=== PATIENT | female | born 1960 | race Two or more races ===

== ENCOUNTER 2016-08-26 09:37 | Emergency (ER) | payer MEDICAID ==
[~2016-08-26] VITALS: Ht 165.1 cm; Wt 99.8 kg
[~2016-08-26 09:37] MED LIST: ALP15OS OP; DORZ2SOL15 OP; IBUP800T24 PO; PREG25CA PO
[2016-08-26 09:48] VITALS: BP 145/89
[2016-08-26 13:42] LABS: Basophils # (auto) 0 uL; Basophils % (auto) 0.4 % (0.0-2.0); DEFINITIVE VIEW TRANSMISSION; Eosinophils # (auto) 0.1 uL; Eosinophils % (auto) 2.6 % (0.0-7.0); Hematocrit 38.5 % (36.0-46.0); Hemoglobin 14.1 g/dL (12.2-16.2); Lymphocytes # (auto) 1.7 uL; Lymphocytes % (auto) 32.3 % (10.0-50.0); Mean Corpuscular Hemoglobin 33.9 pg (28.0-32.0); Mean Corpuscular Hgb Conc. 36.6 g/dL (32.0-36.0); Mean Corpuscular Volume 92.7 fL (80.0-100.0); Mean Platelet Volume 8.1 fL (7.4-10.4); Monocytes # (auto) 0.4 uL; Monocytes % (auto) 7.9 % (0.0-12.0); Neutrophils # (auto) 2.9 uL; Neutrophils % (auto) 56.8 % (37.0-80.0); Platelet Count (auto) 113 10^3/uL (140-450); Red Cell Distribution Width 13.4 % (11.6-16.0); White Blood Cell 5.1 10^3/uL (4.4-10.8)
[2016-08-26 14:09] LABS: Albumin 3.9 g/dL (3.4-5.0); Calcium 8.4 mg/dL (8.5-10.1); Potassium 3.8 mmol/L (3.5-5.1)
[2016-08-26 14:11] LABS: Bilirubin, Total 0.8 mg/dL (0.2-1.0); Total Protein 7.9 g/dL (6.4-8.2)
== END 2016-08-26 14:36 | disposition home or self-care (01) ==
LOC: EDUNIT# 09:37 → ER 09:53
DX: T18.9XXA Foreign body of alimentary tract, part unspecified, initial encounter (principal); S39.011A Strain of muscle, fascia and tendon of abdomen, initial encounter; R51 Headache; I12.9 Hypertensive chronic kidney disease with stage 1 through stage 4 chronic kidney disease, or unspecified chronic kidney disease; N18.9 Chronic kidney disease, unspecified; F03.90 Unspecified dementia, unspecified severity, without behavioral disturbance, psychotic disturbance, mood disturbance, and anxiety; Z79.899 Other long term (current) drug therapy; W04.XXXA Fall while being carried or supported by other persons, initial encounter; Y93.89 Activity, other specified; Y99.8 Other external cause status; Y92.89 Other specified places as the place of occurrence of the external cause; Z90.49 Acquired absence of other specified parts of digestive tract
CPT/HCPCS: 36415; 70450; 74176; 80053; 85025

== ENCOUNTER 2017-01-05 19:48 | Emergency (ER) | payer MEDICAID ==
[~2017-01-05] VITALS: Ht 152.4 cm; Wt 81.6 kg
[2017-01-05 19:50] VITALS: BP 107/78
[2017-01-05] MEDS ORDERED: SODIUM CHLORIDE 0.9% 1,000 ML IVB ONE (21:22)
[2017-01-05 21:59] LABS: Albumin 4.3 g/dL (3.4-5.0); BUN/Creatinine Ratio 13.8; Calcium 8.9 mg/dL (8.5-10.1); Potassium 3.4 mmol/L (3.5-5.1)
[2017-01-05 22:04] LABS: Bilirubin, Total 0.8 mg/dL (0.2-1.0); Total Protein 8.6 g/dL (6.4-8.2)
[2017-01-05 22:14] LABS: Basophils # (auto) 0.1 uL; Basophils % (auto) 0.9 % (0.0-2.0); CONDITION Y; Eosinophils # (auto) 0.1 uL; Eosinophils % (auto) 1.1 % (0.0-7.0); Hematocrit 44.7 % (36.0-46.0); Hemoglobin 15.6 g/dL (12.2-16.2); Lymphocytes # (auto) 3.1 uL; Lymphocytes % (auto) 47.6 % (10.0-50.0); Mean Corpuscular Hemoglobin 32.8 pg (28.0-32.0); Mean Corpuscular Volume 93.7 fL (80.0-100.0); Mean Platelet Volume 7.5 fL (7.4-10.4); Monocytes # (auto) 0.5 uL; Monocytes % (auto) 8.2 % (0.0-12.0); Neutrophils # (auto) 2.8 uL; Neutrophils % (auto) 42.2 % (37.0-80.0); Platelet Count (auto) 102 10^3/uL (140-450); Red Cell Distribution Width 13.6 % (11.6-16.0); White Blood Cell 6.6 10^3/uL (4.4-10.8)
[2017-01-06] MEDS ORDERED: THIAMINE HCL 100 MG/ML 2ML VIAL IM ONE (01:45)
== END 2017-01-06 02:58 | disposition home or self-care (01) ==
LOC: EDBD 19:48 → ER 19:52
DX: F10.129 Alcohol abuse with intoxication, unspecified (principal); G92 Toxic encephalopathy; I12.9 Hypertensive chronic kidney disease with stage 1 through stage 4 chronic kidney disease, or unspecified chronic kidney disease; N18.9 Chronic kidney disease, unspecified; Z90.49 Acquired absence of other specified parts of digestive tract; Z79.899 Other long term (current) drug therapy
CPT/HCPCS: 36415; 80053; 80320; 85025; 96360; 99284; J7030

== ENCOUNTER 2018-01-21 19:55 | Inpatient (IN) | payer MEDICAID ==
[~2018-01-21] VITALS: Ht 157.5 cm; Wt 81.9 kg
[~2018-01-21 19:55] MED LIST changes: -DORZ2SOL15 OP; +DORZ2SOL18 OP
[2018-01-21 20:46] LABS: Basophils # (auto) 0 uL; Basophils % (auto) 1.1 % (0.0-2.0); Eosinophils # (auto) 0.2 uL; Eosinophils % (auto) 4.3 % (0.0-7.0); Hematocrit 32.2 % (36.0-46.0); Hemoglobin 11.1 g/dL (12.2-16.2); Lymphocytes # (auto) 1.2 uL; Lymphocytes % (auto) 31.5 % (10.0-50.0); Mean Corpuscular Hemoglobin 35.4 pg (28.0-32.0); Mean Corpuscular Hgb Conc. 34.6 g/dL (32.0-36.0); Mean Corpuscular Volume 102.3 fL (80.0-100.0); Monocytes # (auto) 0.4 uL; Monocytes % (auto) 11.2 % (0.0-12.0); Neutrophils # (auto) 2.1 uL; Neutrophils % (auto) 51.9 % (37.0-80.0); Nucleated Red Blood Cells % 0.3 %; Red Blood Cells 3.14 10^6/uL (4.0-5.20); Red Cell Distribution Width 13.4 % (11.8-14.3)
[2018-01-21 20:49] LABS: Platelet Count (auto) 125 10^3/uL (140-450)
[2018-01-21 21:00] LABS: Prothrombin Time 10.7 sec (9.27-12.13)
[2018-01-21 21:07] LABS: Alanine Aminotransferase 30 U/L (13-56); Albumin 3.3 g/dL (3.4-5.0); Alkaline Phosphatase 73 U/L (45-117); Anion Gap 13 (5-15); Aspartate Aminotransferase 20 U/L (15-37); Bilirubin, Total 0.5 mg/dL (0.2-1.0); Blood Urea Nitrogen 16 mg/dL (7-18); Calcium 7.4 mg/dL (8.5-10.1); Carbon Dioxide 18 mmol/L (21-32); Chloride 104 mmol/L (98-107); GFR African American 48 mL/min; GFR Non-African American 39 mL/min; Glucose 98 mg/dL (74-106); Potassium 3.7 mmol/L (3.5-5.1); Sodium 135 mmol/L (136-145); Total Protein 6.7 g/dL (6.4-8.2)
[2018-01-21] MEDS ORDERED: SODIUM CHLORIDE 0.9% 1,000 ML IV ONE (21:30)
[2018-01-21 23:17] LABS: Urine Bacteria NONE SEEN /hpf (None Seen); Urine Blood Negative /uL (Negative); Urine Specific Gravity 1.004 (1.001-1.035); Urine WBC <1 /hpf (0 - 5)
[2018-01-21 23:29] LABS: Amphetamine Screen, Urine NEGATIVE (NEGATIVE); Barbiturate Scree,Urine NEGATIVE (NEGATIVE); Benzodiazephine Screen, Urine NEGATIVE (NEGATIVE); Cannabinoid Screen, Urine POSITIVE (NEGATIVE); Cocaine Screen, Urine NEGATIVE (NEGATIVE); Opiate Scree,Urine NEGATIVE (NEGATIVE); Phencyclidine Screen, Urine NEGATIVE (NEGATIVE)
[2018-01-22] MEDS ORDERED: SODIUM CHLORIDE 0.9% 1,000 ML IV SCH (00:15)
[2018-01-22] MEDS ORDERED: ACETAMINOPHEN 500 MG TAB PO PRN (00:15)
[2018-01-22] MEDS ORDERED: ONDANSETRON HCL 4 MG/2 ML VIAL IV PRN (00:15)
[2018-01-22] MEDS ORDERED: SODIUM CHLORIDE 0.9% 1,000 ML IV ONE (02:00)
[2018-01-22] MEDS ORDERED: LORazepam 0.5 MG TAB PO PRN (02:45)
[2018-01-22] MEDS: HYDROcodone-ACET 5/325MG TAB PO PRN ×2 (08:29→22:04)
[2018-01-22 09:20] VITALS: BP 162/100
[2018-01-22 09:21] LABS: BUN/Creatinine Ratio 13.5; Calcium 7.9 mg/dL (8.5-10.1); Potassium 4.2 mmol/L (3.5-5.1)
[2018-01-22] MEDS: PANTOPRAZOLE 40 MG TAB PO SCH (09:55)
[2018-01-22] MEDS: THIAMINE HCL 100 MG TAB PO SCH (09:55)
[2018-01-22] MEDS: FOLIC ACID 1 MG TAB PO SCH (09:56)
[2018-01-22 10:04] LABS: Basophils # (auto) 0 uL; Eosinophils # (auto) 0.1 uL; Lymphocytes % (auto) 30.9 % (10.0-50.0); Monocytes # (auto) 0.3 uL; Neutrophils # (auto) 1.5 uL; Platelet Count (auto) 92 10^3/uL (140-450)
[2018-01-22 10:06] LABS: Eosinophils % (auto) 3.8 % (0.0-7.0); Hematocrit 33.5 % (36.0-46.0); Hemoglobin 11.3 g/dL (12.2-16.2); Lymphocytes # (auto) 0.9 uL; Mean Corpuscular Hemoglobin 34.4 pg (28.0-32.0); Mean Corpuscular Hgb Conc. 33.8 g/dL (32.0-36.0); Mean Corpuscular Volume 101.7 fL (80.0-100.0); Monocytes % (auto) 11.2 % (0.0-12.0); Neutrophils % (auto) 53.1 % (37.0-80.0); Nucleated Red Blood Cells % 0.3 %; Red Blood Cells 3.29 10^6/uL (4.0-5.20); Red Cell Distribution Width 13.6 % (11.8-14.3); White Blood Cell 2.8 10^3/uL (4.4-10.8)
[2018-01-22 13:00] VITALS: BP 124/77
[2018-01-22 17:00] VITALS: BP 123/76
[2018-01-22] MEDS ORDERED: LORA-654 PO (22:03)
[2018-01-22] MEDS ORDERED: HYDR-531 PO (22:03)
[2018-01-22] MEDS ORDERED: FURO40TA PO (22:03)
[2018-01-22] MEDS: TEMAZEPAM 15 MG CAP PO PRN (22:04)
[2018-01-22 22:07] VITALS: BP 125/80
[2018-01-23 05:10] VITALS: BP_SYST 80
[2018-01-23 09:00] VITALS: BP 151/83
[2018-01-23] MEDS: PANTOPRAZOLE 40 MG TAB PO SCH (09:49)
[2018-01-23] MEDS: FOLIC ACID 1 MG TAB PO SCH (09:50)
[2018-01-23] MEDS: THIAMINE HCL 100 MG TAB PO SCH (09:50)
[2018-01-23] MEDS: METOPROLOL TARTRATE 25 MG TAB PO SCH ×2 (09:54→22:12)
[2018-01-23] MEDS: HYDROcodone-ACET 5/325MG TAB PO PRN ×2 (09:54→20:20)
[2018-01-23] MEDS: PROPRANOLOL HCL 20 MG TAB PO SCH ×2 (09:55→22:12)
[2018-01-23] MEDS: MECLIZINE HCL 25 MG TAB PO PRN (09:55)
[2018-01-23 13:00] VITALS: BP 127/79
[2018-01-23 22:00] VITALS: BP 136/79
[2018-01-23] MEDS: TEMAZEPAM 15 MG CAP PO PRN (22:13)
[2018-01-24 05:00] VITALS: BP 178/85
[2018-01-24] MEDS: LISINOPRIL 10 MG TAB PO SCH ×3 (06:19→22:21)
[2018-01-24 07:32] LABS: Basophils # (auto) 0 uL; Basophils % (auto) 0.6 % (0.0-2.0); Hemoglobin 11.8 g/dL (12.2-16.2); Lymphocytes # (auto) 0.9 uL; Monocytes # (auto) 0.4 uL; Platelet Count (auto) 91 10^3/uL (140-450)
[2018-01-24 07:38] LABS: Eosinophils # (auto) 0.2 uL; Eosinophils % (auto) 4.6 % (0.0-7.0); Hematocrit 34.2 % (36.0-46.0); Lymphocytes % (auto) 24.5 % (10.0-50.0); Mean Corpuscular Hemoglobin 35.9 pg (28.0-32.0); Mean Corpuscular Hgb Conc. 34.4 g/dL (32.0-36.0); Mean Corpuscular Volume 104.4 fL (80.0-100.0); Monocytes % (auto) 12.3 % (0.0-12.0); Red Blood Cells 3.28 10^6/uL (4.0-5.20); Red Cell Distribution Width 13.3 % (11.8-14.3); White Blood Cell 3.5 10^3/uL (4.4-10.8)
[2018-01-24 07:49] LABS: Albumin 3.3 g/dL (3.4-5.0); BUN/Creatinine Ratio 21.1; Bilirubin, Total 0.8 mg/dL (0.2-1.0); Calcium 8.5 mg/dL (8.5-10.1); Potassium 4.1 mmol/L (3.5-5.1); Total Protein 6.8 g/dL (6.4-8.2)
[2018-01-24 09:30] VITALS: BP 147/86
[2018-01-24] MEDS: THIAMINE HCL 100 MG TAB PO SCH (10:09)
[2018-01-24] MEDS: METOPROLOL TARTRATE 25 MG TAB PO SCH ×2 (10:10→22:21)
[2018-01-24] MEDS: FOLIC ACID 1 MG TAB PO SCH (10:10)
[2018-01-24] MEDS: PANTOPRAZOLE 40 MG TAB PO SCH (10:11)
[2018-01-24] MEDS: PROPRANOLOL HCL 20 MG TAB PO SCH ×2 (10:11→22:20)
[2018-01-24] MEDS ORDERED: CITALOPRAM HYDROBR 20 MG TAB PO ONE (11:00)
[2018-01-24 12:55] LABS: Folate (Folic Acid) > 24.00 ng/mL (5.38-24)
[2018-01-24 13:34] VITALS: BP 142/80
[2018-01-24 17:47] VITALS: BP 133/80
[2018-01-24 21:52] VITALS: BP 134/89
[2018-01-24] MEDS: HYDROcodone-ACET 5/325MG TAB PO PRN (22:22)
[2018-01-25 05:10] VITALS: BP 139/75
[2018-01-25 07:23] LABS: Basophils # (auto) 0 uL; Eosinophils # (auto) 0.2 uL; Hemoglobin 12.2 g/dL (12.2-16.2); Neutrophils # (auto) 2.2 uL; Red Cell Distribution Width 13.2 % (11.8-14.3)
[2018-01-25 07:26] LABS: Basophils % (auto) 0.8 % (0.0-2.0); Eosinophils % (auto) 4.5 % (0.0-7.0); Hematocrit 33.9 % (36.0-46.0); Lymphocytes # (auto) 0.8 uL; Lymphocytes % (auto) 21.8 % (10.0-50.0); Mean Corpuscular Hgb Conc. 36.1 g/dL (32.0-36.0); Mean Corpuscular Volume 102.6 fL (80.0-100.0); Monocytes # (auto) 0.5 uL; Monocytes % (auto) 12.6 % (0.0-12.0); Neutrophils % (auto) 60.3 % (37.0-80.0); Nucleated Red Blood Cells % 0.3 %; Platelet Count (auto) 91 10^3/uL (140-450); Red Blood Cells 3.31 10^6/uL (4.0-5.20); White Blood Cell 3.6 10^3/uL (4.4-10.8)
[2018-01-25 07:28] VITALS: BP 131/74
[2018-01-25 07:43] LABS: Albumin 3.3 g/dL (3.4-5.0); Calcium 8.6 mg/dL (8.5-10.1); Potassium 4.1 mmol/L (3.5-5.1)
[2018-01-25 07:46] LABS: BUN/Creatinine Ratio 18.6
[2018-01-25 07:49] LABS: Bilirubin, Total 0.9 mg/dL (0.2-1.0); Total Protein 6.8 g/dL (6.4-8.2)
[2018-01-25 08:00] VITALS: BP 131/74
[2018-01-25] MEDS: PROPRANOLOL HCL 20 MG TAB PO SCH ×2 (10:13→22:00)
[2018-01-25] MEDS: THIAMINE HCL 100 MG TAB PO SCH (10:13)
[2018-01-25] MEDS: PANTOPRAZOLE 40 MG TAB PO SCH (10:14)
[2018-01-25] MEDS: LISINOPRIL 10 MG TAB PO SCH ×2 (10:14→22:00)
[2018-01-25] MEDS: CITALOPRAM HYDROBR 20 MG TAB PO SCH (10:14)
[2018-01-25] MEDS: FOLIC ACID 1 MG TAB PO SCH (10:15)
[2018-01-25] MEDS: METOPROLOL TARTRATE 25 MG TAB PO SCH ×2 (10:15→22:00)
[2018-01-25] MEDS: HYDROcodone-ACET 5/325MG TAB PO PRN (11:03)
[2018-01-25 16:33] VITALS: BP 99/63
[2018-01-25 22:00] VITALS: BP 109/65
[2018-01-26 05:00] VITALS: BP 130/72
[2018-01-26 09:00] VITALS: BP 137/90
[2018-01-26] MEDS: THIAMINE HCL 100 MG TAB PO SCH (09:28)
[2018-01-26] MEDS: PROPRANOLOL HCL 20 MG TAB PO SCH ×2 (09:29→22:00)
[2018-01-26] MEDS: LISINOPRIL 10 MG TAB PO SCH ×2 (09:29→22:00)
[2018-01-26] MEDS: CITALOPRAM HYDROBR 20 MG TAB PO SCH (09:29)
[2018-01-26] MEDS: FOLIC ACID 1 MG TAB PO SCH (09:29)
[2018-01-26] MEDS: PANTOPRAZOLE 40 MG TAB PO SCH (09:29)
[2018-01-26] MEDS: METOPROLOL TARTRATE 25 MG TAB PO SCH ×2 (09:30→22:00)
[2018-01-26] MEDS ORDERED: FLUT110A INH (09:43)
[2018-01-26] MEDS ORDERED: LATA0.0015 EACHEYE (09:43)
[2018-01-26] MEDS ORDERED: FURO20TA PO (09:43)
[2018-01-26] MEDS ORDERED: LISI-275 PO (09:43)
[2018-01-26] MEDS ORDERED: DORZ2SOL18 EACHEYE (09:43)
[2018-01-26] MEDS ORDERED: BRIM0.159 OP (09:43)
[2018-01-26 13:00] VITALS: BP 116/74
[2018-01-26 17:34] VITALS: BP 125/86
[2018-01-26] MEDS: HYDROcodone-ACET 5/325MG TAB PO PRN (21:34)
[2018-01-26 21:56] VITALS: BP 100/61
[2018-01-26] MEDS: BRIMONIDINE 0.2% OPTH Soln 5ml EACHEYE SCH (22:00)
[2018-01-26] MEDS: DORZOLAM-TIMOLOL(2/0.5%) OPTH(EYE) SOLN 10ML EACHEYE SCH (22:00)
[2018-01-26] MEDS ORDERED: LATANOPROST 0.005 % OPTH(EYE) SOL 2.5ML EACHEYE SCH (22:00)
[2018-01-26] MEDS: TEMAZEPAM 15 MG CAP PO PRN (22:46)
[2018-01-27 05:00] VITALS: BP 132/66
[2018-01-27] MEDS: BRIMONIDINE 0.2% OPTH Soln 5ml EACHEYE SCH (06:10)
[2018-01-27 07:02] LABS: Basophils # (auto) 0 uL; Eosinophils # (auto) 0.2 uL; Eosinophils % (auto) 5.7 % (0.0-7.0); Hemoglobin 12.1 g/dL (12.2-16.2); Monocytes # (auto) 0.6 uL; Neutrophils # (auto) 1.4 uL
[2018-01-27 07:04] LABS: Basophils % (auto) 0.5 % (0.0-2.0); Hematocrit 32.7 % (36.0-46.0); Lymphocytes # (auto) 1.2 uL; Lymphocytes % (auto) 35.4 % (10.0-50.0); Mean Corpuscular Hemoglobin 38.6 pg (28.0-32.0); Mean Corpuscular Hgb Conc. 37.1 g/dL (32.0-36.0); Mean Corpuscular Volume 104.3 fL (80.0-100.0); Monocytes % (auto) 17.3 % (0.0-12.0); Neutrophils % (auto) 41.1 % (37.0-80.0); Platelet Count (auto) 87 10^3/uL (140-450); Red Blood Cells 3.14 10^6/uL (4.0-5.20); Red Cell Distribution Width 13.1 % (11.8-14.3); White Blood Cell 3.4 10^3/uL (4.4-10.8)
[2018-01-27 07:13] LABS: Albumin 3.3 g/dL (3.4-5.0); BUN/Creatinine Ratio 22.4; Calcium 8.6 mg/dL (8.5-10.1); Potassium 4.4 mmol/L (3.5-5.1)
[2018-01-27 07:16] LABS: Bilirubin, Total 0.5 mg/dL (0.2-1.0); Total Protein 6.8 g/dL (6.4-8.2)
[2018-01-27 08:19] VITALS: BP 131/76
[2018-01-27] MEDS: THIAMINE HCL 100 MG TAB PO SCH (09:13)
[2018-01-27] MEDS: PANTOPRAZOLE 40 MG TAB PO SCH (09:14)
[2018-01-27] MEDS: PROPRANOLOL HCL 20 MG TAB PO SCH (09:14)
[2018-01-27] MEDS: HYDROcodone-ACET 5/325MG TAB PO PRN (09:15)
[2018-01-27] MEDS: METOPROLOL TARTRATE 25 MG TAB PO SCH (09:15)
[2018-01-27] MEDS: LISINOPRIL 10 MG TAB PO SCH (09:15)
[2018-01-27] MEDS: DORZOLAM-TIMOLOL(2/0.5%) OPTH(EYE) SOLN 10ML EACHEYE SCH (09:17)
[2018-01-27] MEDS: CITALOPRAM HYDROBR 20 MG TAB PO SCH (09:21)
[2018-01-27] MEDS: MECLIZINE HCL 25 MG TAB PO PRN (09:21)
[2018-01-27] MEDS: FOLIC ACID 1 MG TAB PO SCH (10:00)
== END 2018-01-27 13:02 | disposition home or self-care (01) | DRG 469 ==
LOC: EDBD 19:55 → ER 19:55 → TELE 19:56 → TELE-WESTW 01-22 09:00
PROVIDERS: ADMIT Nurse Practitioner Family; ATTEND Internal Medicine
DX: N17.0 Acute kidney failure with tubular necrosis (principal); I67.4 Hypertensive encephalopathy; I13.0 Hypertensive heart and chronic kidney disease with heart failure and stage 1 through stage 4 chronic kidney disease, or unspecified chronic kidney disease; I95.9 Hypotension, unspecified; D69.6 Thrombocytopenia, unspecified; I50.9 Heart failure, unspecified; D64.9 Anemia, unspecified; D72.819 Decreased white blood cell count, unspecified; H40.9 Unspecified glaucoma; N18.9 Chronic kidney disease, unspecified; F12.90 Cannabis use, unspecified, uncomplicated; Z82.3 Family history of stroke; Z82.49 Family history of ischemic heart disease and other diseases of the circulatory system; Z83.3 Family history of diabetes mellitus; Z71.41 Alcohol abuse counseling and surveillance of alcoholic; Z71.51 Drug abuse counseling and surveillance of drug abuser; Z80.9 Family history of malignant neoplasm, unspecified; Z87.891 Personal history of nicotine dependence; F10.129 Alcohol abuse with intoxication, unspecified
CPT/HCPCS: 36415; 70450; 80048; 80053; 80307; 80320; 81001; 82746; 83880; 84443; 84484; 85025; 85610; 85730; 86592; 93005; 96360; 96361; 99291

== ENCOUNTER 2019-02-02 21:40 | Emergency (ER) | payer MEDICARE, MEDICAID ==
[~2019-02-02] VITALS: Ht 165.1 cm; Wt 79.8 kg
[~2019-02-02 21:40] MED LIST changes: -ALP15OS OP; +BRIM0.159 OP; +DORZ2SOL18 EACHEYE; -DORZ2SOL18 OP; +FLUT110A INH; +FURO1TAB33 PO; +HYDR-531 PO; -IBUP800T24 PO; +LATA0.0015 EACHEYE; +LISI-275 PO; +LORA0.5T12 PO; -PREG25CA PO
[2019-02-02 22:54] LABS: Basophils # (auto) 0.1 uL; Lymphocytes # (auto) 1.5 uL; Mean Corpuscular Hemoglobin 37.5 pg (28.0-32.0); Nucleated Red Blood Cells % 0.1 %
[2019-02-02 22:57] LABS: Basophils % (auto) 1.2 % (0.0-2.0); Eosinophils # (auto) 0.5 uL; Eosinophils % (auto) 10.4 % (0.0-7.0); Hemoglobin 11.7 g/dL (12.2-16.2); Lymphocytes % (auto) 30.7 % (10.0-50.0); Mean Corpuscular Hgb Conc. 35.5 g/dL (32.0-36.0); Mean Corpuscular Volume 105.5 fL (80.0-100.0); Monocytes # (auto) 0.5 uL; Monocytes % (auto) 9.3 % (0.0-12.0); Neutrophils # (auto) 2.3 uL; Neutrophils % (auto) 48.4 % (37.0-80.0); Platelet Count (auto) 155 10^3/uL (140-450); Red Blood Cells 3.13 10^6/uL (4.0-5.20); Red Cell Distribution Width 12.6 % (11.8-14.3); White Blood Cell 4.8 10^3/uL (4.4-10.8)
[2019-02-02 23:12] LABS: Albumin 3.8 g/dL (3.4-5.0); BUN/Creatinine Ratio 15.5; Calcium 8.9 mg/dL (8.5-10.1); Potassium 3.9 mmol/L (3.5-5.1)
[2019-02-02 23:15] LABS: Bilirubin, Total 0.4 mg/dL (0.2-1.0); Total Protein 7.8 g/dL (6.4-8.2)
[2019-02-02] MEDS ORDERED: TETANUS-DIPTH-ACEL PERTUSSIS 0.5ML SYRG IM ONE (23:30)
[2019-02-03 02:11] LABS: Amphetamine Screen, Urine NEGATIVE (NEGATIVE); Barbiturate Scree,Urine NEGATIVE (NEGATIVE); Benzodiazephine Screen, Urine NEGATIVE (NEGATIVE); Cocaine Screen, Urine NEGATIVE (NEGATIVE); Opiate Scree,Urine NEGATIVE (NEGATIVE); Phencyclidine Screen, Urine NEGATIVE (NEGATIVE)
[2019-02-03 02:15] LABS: Cannabinoid Screen, Urine POSITIVE (NEGATIVE)
[2019-02-03 03:57] VITALS: BP 101/63
== END 2019-02-03 06:18 | disposition home or self-care (01) ==
LOC: EDBD 21:40 → ER 21:40 → EDUNIT# 21:40 → EDSEX 21:40 → ER 02-03 06:18
DX: S01.01XA Laceration without foreign body of scalp, initial encounter (principal); F10.129 Alcohol abuse with intoxication, unspecified; I13.0 Hypertensive heart and chronic kidney disease with heart failure and stage 1 through stage 4 chronic kidney disease, or unspecified chronic kidney disease; N18.9 Chronic kidney disease, unspecified; I50.9 Heart failure, unspecified; Z90.89 Acquired absence of other organs; Z79.899 Other long term (current) drug therapy; W18.39XA Other fall on same level, initial encounter; Y93.89 Activity, other specified; Y92.89 Other specified places as the place of occurrence of the external cause; Y99.8 Other external cause status; Y90.8 Blood alcohol level of 240 mg/100 ml or more
CPT/HCPCS: 12002; 36415; 70450; 80053; 80307; 80320; 85025; 90471; 90715

== ENCOUNTER 2022-05-09 20:34 | Inpatient (IN) | payer MEDICARE, MEDICAID ==
[~2022-05-09] VITALS: Ht 165.1 cm; Wt 84.0 kg
[~2022-05-09 20:34] MED LIST changes: -LATA0.0015 EACHEYE; +LATA0.0019 EACHEYE; -LORA0.5T12 PO; +LORA0.5T20 PO
[2022-05-09 21:59] LABS: Basophils # (auto) 0 10 ^3/uL (0-0.2); Basophils % (auto) 0.4 % (0.0-2.0); Eosinophils # (auto) 0.2 10 ^3/uL (0-0.8); Lymphocytes # (auto) 1.1 10 ^3/uL (0.4-5.4); Mean Corpuscular Volume 99.8 fL (80.0-100.0); Monocytes # (auto) 0.8 10 ^3/uL (0-1.3); Neutrophils # (auto) 4.9 10 ^3/uL (1.6-8.6); White Blood Cell 7.1 10^3/uL (4.4-10.8)
[2022-05-09 22:01] LABS: Hematocrit 33.3 % (36.0-46.0); Hemoglobin 11.9 g/dL (12.2-16.2); Lymphocytes % (auto) 15.4 % (10.0-50.0); Mean Corpuscular Hemoglobin 35.6 pg (28.0-32.0); Mean Corpuscular Hgb Conc. 35.7 g/dL (32.0-36.0); Monocytes % (auto) 11.8 % (0.0-12.0); Neutrophils % (auto) 69.4 % (37.0-80.0); Red Blood Cells 3.34 10^6/uL (4.0-5.20); Red Cell Distribution Width 12.3 % (11.8-14.3)
[2022-05-09 22:10] LABS: INR 1.03 (0.9-1.15); Partial Thromboplastin Time 24.8 sec (24.6-33.4)
[2022-05-09 22:17] LABS: Albumin 3.5 g/dL (3.4-5.0); Bilirubin, Total 0.4 mg/dL (0.2-1.0); Calcium 8.3 mg/dL (8.5-10.1); Potassium 3.8 mmol/L (3.5-5.1); Total Protein 6.8 g/dL (6.4-8.2)
[2022-05-10 00:10] LABS: Amphetamine Screen, Urine NEGATIVE (NEGATIVE); Barbiturate Scree,Urine NEGATIVE (NEGATIVE); Benzodiazephine Screen, Urine NEGATIVE (NEGATIVE); Cannabinoid Screen, Urine POSITIVE (NEGATIVE); Cocaine Screen, Urine NEGATIVE (NEGATIVE); Opiate Scree,Urine NEGATIVE (NEGATIVE); Phencyclidine Screen, Urine NEGATIVE (NEGATIVE)
[2022-05-10 02:18] LABS: Urine Bacteria FEW /hpf (None Seen); Urine Blood Negative /uL (Negative); Urine Mucus FEW (None Seen); Urine Specific Gravity 1.017 (1.001-1.035); Urine WBC 22 /hpf (0 - 5)
[2022-05-10] MEDS ORDERED: SODIUM CHLORIDE 0.9% 500 ML IV ONE (03:15)
[2022-05-10] MEDS ORDERED: levoFLOXacin 500MG 100 ML IV ONE (03:30)
[2022-05-10] MEDS ORDERED: chlordiazePOXIDE HCL 25 MG CAP PO PRN (05:15)
[2022-05-10] MEDS ORDERED: ONDANSETRON HCL 4 MG/2 ML VIAL IV PRN (05:15)
[2022-05-10] MEDS ORDERED: TEMAZEPAM 15 MG CAP PO PRN (05:15)
[2022-05-10] MEDS: PANTOPRAZOLE 40 MG TAB PO SCH (09:50)
[2022-05-10] MEDS: ACETAMINOPHEN 325 MG TAB PO PRN ×2 (09:51→23:01)
[2022-05-10] MEDS: cefTRIAXone 1GM/50ML D5W 50 ML IV SCH (09:51)
[2022-05-10] MEDS: ENOXAPARIN SOD 30 MG/0.3 ML SYRINGE SC SCH (09:52)
[2022-05-10 17:24] LABS: Folate (Folic Acid) 14.56 ng/mL (5.38-24)
[2022-05-10 17:26] LABS: Free T4 (Free Thyroxine) 0.98 ng/dL (0.89-1.76)
[2022-05-10] MEDS: FOLIC ACID 1 MG, MULTIPLE VITAMIN 10 ML, MAGNESIUM SULF SDV 50% 8 MEQ, THIAMINE INJ 100... INJ SCH ×5 (18:26)
[2022-05-10] MEDS ORDERED: CYANOCOBALAMIN (B-12) 1000 MCG/1 ML VIAL IM ONE (21:45)
[2022-05-11] VITALS (7 sets, daily range): BP systolic 118–153; BP diastolic 69–86
[2022-05-11 06:19] LABS: BUN/Creatinine Ratio 23.3; Calcium 8.8 mg/dL (8.5-10.1); Potassium 4.1 mmol/L (3.5-5.1)
[2022-05-11] MEDS: ACETAMINOPHEN 325 MG TAB PO PRN (06:54)
[2022-05-11] MEDS: cefTRIAXone 1GM/50ML D5W 50 ML IV SCH (09:30)
[2022-05-11] MEDS: ENOXAPARIN SOD 30 MG/0.3 ML SYRINGE SC SCH (10:30)
[2022-05-11] MEDS: CYANOCOBALAMIN (B-12) 1000 MCG/1 ML VIAL IM SCH (10:30)
[2022-05-11] MEDS: PANTOPRAZOLE 40 MG TAB PO SCH (10:30)
[2022-05-11] MEDS: FOLIC ACID 1 MG, MULTIPLE VITAMIN 10 ML, MAGNESIUM SULF SDV 50% 8 MEQ, THIAMINE INJ 100... INJ SCH ×5 (11:05)
[2022-05-11] MEDS ORDERED: LISI-716 PO (17:58)
[2022-05-11] MEDS: [UNRECOGNIZED DRUG - OTHER] EACHEYE SCH (22:12)
[2022-05-11] MEDS: BRIMONIDINE TARTRATE OP SCH (22:12)
[2022-05-12] VITALS: BP 125/76
[2022-05-12] MEDS: ACETAMINOPHEN 325 MG TAB PO PRN (04:31)
[2022-05-12 05:00] VITALS: BP 149/80
[2022-05-12] MEDS: BRIMONIDINE TARTRATE OP SCH ×2 (05:02→14:30)
[2022-05-12 08:34] VITALS: BP 140/80
[2022-05-12] MEDS: ENOXAPARIN SOD 30 MG/0.3 ML SYRINGE SC SCH (08:35)
[2022-05-12] MEDS: cefTRIAXone 1GM/50ML D5W 50 ML IV SCH (08:35)
[2022-05-12] MEDS: PANTOPRAZOLE 40 MG TAB PO SCH (08:36)
[2022-05-12] MEDS: CYANOCOBALAMIN (B-12) 1000 MCG/1 ML VIAL IM SCH (08:40)
[2022-05-12] MEDS: [UNRECOGNIZED DRUG - OTHER] EACHEYE SCH (08:41)
[2022-05-12] MEDS: FOLIC ACID 1 MG, MULTIPLE VITAMIN 10 ML, MAGNESIUM SULF SDV 50% 8 MEQ, THIAMINE INJ 100... INJ SCH ×5 (12:17)
[2022-05-12 12:59] VITALS: BP 156/100
[2022-05-12] MEDS ORDERED: CEPH-511 PO (15:13)
[2022-05-12 15:33] VITALS: BP 131/78
[2022-05-12 15:49] VITALS: BP 139/81
[2022-05-12] MEDS ORDERED: cloNIDine HCL 0.1 MG TAB PO ONE (17:30)
[2022-05-12] MEDS ORDERED: hydrALAZINE HCL 20 MG/ML VL IV ONE (17:30)
[2022-05-12] MEDS ORDERED: LATANOPROST 0.005 % OPTH(EYE) SOL 2.5ML EACHEYE SCH (18:00)
== END 2022-05-12 18:59 | disposition home or self-care (01) | DRG 91 ==
LOC: EDBD 20:34 → ER 20:35 → OVERFLOW 05-10 05:12 → WEST WING 05-10 21:50
PROVIDERS: ADMIT Nurse Practitioner; ATTEND Internal Medicine
DX: G92.9 Unspecified toxic encephalopathy (principal); N17.0 Acute kidney failure with tubular necrosis; I13.0 Hypertensive heart and chronic kidney disease with heart failure and stage 1 through stage 4 chronic kidney disease, or unspecified chronic kidney disease; N30.00 Acute cystitis without hematuria; E86.0 Dehydration; S00.83XA Contusion of other part of head, initial encounter; N18.9 Chronic kidney disease, unspecified; I72.2 Aneurysm of renal artery; Z20.822 Contact with and (suspected) exposure to COVID-19; W18.39XA Other fall on same level, initial encounter; I50.9 Heart failure, unspecified; Z82.49 Family history of ischemic heart disease and other diseases of the circulatory system; Z82.3 Family history of stroke; Z83.3 Family history of diabetes mellitus; Y93.89 Activity, other specified; Y92.89 Other specified places as the place of occurrence of the external cause; Y99.8 Other external cause status; Z71.41 Alcohol abuse counseling and surveillance of alcoholic; F10.229 Alcohol dependence with intoxication, unspecified
CPT/HCPCS: 36415; 70450; 70486; 71045; 71250; 72125; 74176; 80048; 80053; 80307; 80320; 81001; 82607; 82746; 83735; 83880; 84439; 84443; 84484; 85025; 85610; 85730; 87040; 87426; 93005; 96365; 96367; 97163; G0378; J0696; J1956

== ENCOUNTER → 2022-11-29 | Outpatient (CLI) | payer OTHER ==
[~2022-11-29] MED LIST changes: +CEPH-511 PO; -LATA0.0019 EACHEYE; +LATA0.008 EACHEYE; -LORA0.5T20 PO
[2022-11-29 10:05] LABS: Basophils # (auto) 0 10 ^3/uL (0-0.2); Basophils % (auto) 0.4 % (0.0-2.0); Eosinophils # (auto) 0.1 10 ^3/uL (0-0.8); Hematocrit 35.1 % (36.0-46.0); Hemoglobin 11.9 g/dL (12.2-16.2); Lymphocytes # (auto) 1.1 10 ^3/uL (0.4-5.4); Lymphocytes % (auto) 36.4 % (10.0-50.0); Mean Corpuscular Hemoglobin 31.1 pg (28.0-32.0); Mean Corpuscular Volume 91.5 fL (80.0-100.0); Monocytes # (auto) 0.3 10 ^3/uL (0-1.3); Monocytes % (auto) 9.3 % (0.0-12.0); Neutrophils # (auto) 1.5 10 ^3/uL (1.6-8.6); Neutrophils % (auto) 50.9 % (37.0-80.0); Nucleated Red Blood Cells % 0.1 %; Red Blood Cells 3.83 10^6/uL (4.0-5.20); Red Cell Distribution Width 12.6 % (11.8-14.3); White Blood Cell 2.9 10^3/uL (4.4-10.8)
[2022-11-29 11:47] LABS: Albumin 3.7 g/dL (3.4-5.0); BUN/Creatinine Ratio 18.7 (10.0-20.0); Calcium 8.7 mg/dL (8.5-10.1); Potassium 4.4 mmol/L (3.5-5.1)
[2022-11-29 11:54] LABS: Bilirubin, Total 0.3 mg/dL (0.2-1.0); Total Protein 7.6 g/dL (6.4-8.2)
== END | disposition home or self-care (01) ==
LOC: LAB 09:48
PROVIDERS: ATTEND Student in an Organized Health Care Education/Training Program
DX: Z12.11 Encounter for screening for malignant neoplasm of colon (principal); Z46.9 Encounter for fitting and adjustment of unspecified device; M13.80 Other specified arthritis, unspecified site; I10 Essential (primary) hypertension; F10.10 Alcohol abuse, uncomplicated
CPT/HCPCS: 36415; 80053; 80061; 82274; 85025; 85652; 86431

== ENCOUNTER 2022-12-07 09:47 | Emergency (ER) | payer OTHER, MEDICAID ==
[~2022-12-07] VITALS: Ht 157.5 cm; Wt 81.0 kg
[2022-12-07 10:19] VITALS: BP 159/104
[2022-12-07] MEDS ORDERED: ACET-1080 PO (11:34)
[2022-12-07] MEDS ORDERED: ACETAMINOPHEN 500 MG TAB PO ONE (11:45)
== END 2022-12-07 11:46 | disposition home or self-care (01) ==
LOC: ER 09:47
DX: S90.32XA Contusion of left foot, initial encounter (principal); I13.0 Hypertensive heart and chronic kidney disease with heart failure and stage 1 through stage 4 chronic kidney disease, or unspecified chronic kidney disease; N18.9 Chronic kidney disease, unspecified; I50.89 Other heart failure; F10.90 Alcohol use, unspecified, uncomplicated; Z90.89 Acquired absence of other organs; Z79.899 Other long term (current) drug therapy; W04.XXXA Fall while being carried or supported by other persons, initial encounter; Y93.89 Activity, other specified; Y92.89 Other specified places as the place of occurrence of the external cause; Y99.8 Other external cause status
CPT/HCPCS: 73630

== ENCOUNTER 2023-04-18 06:54 | Day surgery (SDC) | payer OTHER, MEDICAID ==
[2023-04-16 11:53] LABS: Basophils # (auto) 0 10 ^3/uL (0-0.2); Basophils % (auto) 0.5 % (0.0-2.0); Eosinophils # (auto) 0.2 10 ^3/uL (0-0.8); Eosinophils % (auto) 3.3 % (0.0-7.0); Hematocrit 37.7 % (36.0-46.0); Hemoglobin 12.8 g/dL (12.2-16.2); Lymphocytes # (auto) 1.4 10 ^3/uL (0.4-5.4); Lymphocytes % (auto) 28.9 % (10.0-50.0); Mean Corpuscular Hemoglobin 31.7 pg (28.0-32.0); Mean Corpuscular Hgb Conc. 34.1 g/dL (32.0-36.0); Mean Corpuscular Volume 92.9 fL (80.0-100.0); Monocytes # (auto) 0.6 10 ^3/uL (0-1.3); Monocytes % (auto) 12.2 % (0.0-12.0); Neutrophils # (auto) 2.7 10 ^3/uL (1.6-8.6); Neutrophils % (auto) 55.1 % (37.0-80.0); Nucleated Red Blood Cells % 0.1 %; Red Blood Cells 4.06 10^6/uL (4.0-5.20); Red Cell Distribution Width 13.6 % (11.8-14.3); White Blood Cell 4.9 10^3/uL (4.4-10.8)
[2023-04-16 12:08] LABS: INR 1.02 (0.9-1.15); Partial Thromboplastin Time 24.5 SEC (24.5-34.5); Prothrombin Time 10.7 sec (9.3-11.8)
[2023-04-16 12:43] LABS: Alanine Aminotransferase 23 U/L (7-40); Albumin 4.6 g/dL (3.2-4.8); Alkaline Phosphatase 77 U/L (46-116); Anion Gap 7 (5-15); Aspartate Aminotransferase 10 U/L (13-40); BUN/Creatinine Ratio 20.7 (10.0-20.0); Bilirubin, Total 0.6 mg/dL (0.2-1.0); Blood Urea Nitrogen 19 mg/dL (9-23); Calcium 9.6 mg/dL (8.7-10.4); Carbon Dioxide 24 mmol/L (20-30); Chloride 111 mmol/L (98-107); Glucose 91 mg/dL (74-106); Potassium 4.6 mmol/L (3.5-5.1); Sodium 142 mmol/L (136-145); Total Protein 7.6 g/dL (5.7-8.2)
[~2023-04-18] VITALS: Ht 157.5 cm; Wt 81.2 kg
[~2023-04-18 06:54] MED LIST changes: +ACET-1080 PO; -CEPH-511 PO; -FURO1TAB33 PO; -HYDR-531 PO; -LISI-275 PO; +LISI10TA34 PO; +METO25TA36 PO
[2023-04-18 07:32] LABS: Urine Bacteria NONE SEEN /hpf (None Seen); Urine Blood Negative /uL (Negative); Urine Clarity Clear (Clear); Urine Color Yellow (Yellow); Urine Protein, UAD Negative (Negative); Urine Specific Gravity 1.021 (1.001-1.035); Urine Urobilinogen Normal (Negative); Urine WBC 4 /hpf (0 - 5); Urine pH 5.5 (5.0-8.0)
[2023-04-18] MEDS ORDERED: LIDOCAINE 2%HCL (LOCAL ANESTH.) INJ 10ml MDV ONE (08:13)
[2023-04-18] MEDS ORDERED: ceFAZolin 1GM/50ML 100 ML IV ONE (10:13)
[2023-04-18] MEDS ORDERED: fentaNYL CITRATE 100 MCG/2 ML VL ONE (12:30)
[2023-04-18] MEDS ORDERED: MEPERIDINE HCL (25 MG/ML) 1ML VIAL ONE ×2 (12:30→14:17)
[2023-04-18] MEDS ORDERED: PROPOFOL 10 MG/ML 20 ML IV ONE (12:42)
[2023-04-18] MEDS ORDERED: ePHEDrine SULFATE 50 MG/ML AMP ONE (12:59)
[2023-04-18] MEDS ORDERED: ONDANSETRON HCL 4 MG/2 ML VIAL ONE (13:09)
[2023-04-18 14:21] VITALS: PULSE 73; RESP 16; TEMP 97.2; O2SAT 99
[2023-04-18] MEDS ORDERED: ACE3T PO (14:27)
[2023-04-18] MEDS ORDERED: CEPH250C PO (14:29)
[2023-04-18] MEDS ORDERED: MEPERIDINE HCL (25 MG/ML) 1ML VIAL IV PRN (14:30)
[2023-04-18] MEDS ORDERED: ONDANSETRON HCL 4 MG/2 ML VIAL IV PRN (14:30)
[2023-04-18] MEDS ORDERED: HYDROmorphone HCL 2 MG/ML VL/or syr IV PRN (14:30)
[2023-04-18] MEDS ORDERED: HYDROmorphone HCL 2 MG/ML VL/or syr IV ONE (15:08)
[2023-04-18 15:40] VITALS: BP 156/84; PULSE 81; RESP 15; O2SAT 99
== END 2023-04-18 16:15 | disposition home or self-care (01) ==
LOC: SUR 06:54
PROVIDERS: ATTEND Surgery
DX: C50.912 Malignant neoplasm of unspecified site of left female breast (principal); J44.9 Chronic obstructive pulmonary disease, unspecified; I10 Essential (primary) hypertension; Z87.891 Personal history of nicotine dependence; Z79.899 Other long term (current) drug therapy
CPT/HCPCS: 19125; 36415; 38525; 76642; 76942; 78195; 80053; 81001; 85025; 85610; 85730; 88305; 88342; A9541; J0690; J1170; J2001; J2175; J2405; J2704; J3010

== ENCOUNTER → 2023-06-04 | Day surgery (SDC) | payer OTHER ==
[2023-05-31 13:28] LABS: Basophils # (auto) 0 10 ^3/uL (0-0.2); Basophils % (auto) 0.6 % (0.0-2.0); Eosinophils # (auto) 0.1 10 ^3/uL (0-0.8); Eosinophils % (auto) 2.4 % (0.0-7.0); Hematocrit 37.2 % (36.0-46.0); Hemoglobin 12.5 g/dL (12.2-16.2); Lymphocytes # (auto) 1.1 10 ^3/uL (0.4-5.4); Mean Corpuscular Hemoglobin 31.9 pg (28.0-32.0); Mean Corpuscular Hgb Conc. 33.5 g/dL (32.0-36.0); Monocytes # (auto) 0.4 10 ^3/uL (0-1.3); Monocytes % (auto) 8.8 % (0.0-12.0); Neutrophils # (auto) 3.2 10 ^3/uL (1.6-8.6); Neutrophils % (auto) 65.2 % (37.0-80.0); Nucleated Red Blood Cells % 0.1 %; Red Blood Cells 3.92 10^6/uL (4.0-5.20); Red Cell Distribution Width 13.3 % (11.8-14.3); White Blood Cell 4.9 10^3/uL (4.4-10.8)
[2023-05-31 13:43] LABS: Urine Bacteria NONE SEEN /hpf (None Seen); Urine Blood Negative /uL (Negative); Urine Clarity CLOUDY (Clear); Urine Color Yellow (Yellow); Urine Protein, UAD TRACE (Negative); Urine Specific Gravity 1.022 (1.001-1.035); Urine Urobilinogen Normal (Negative); Urine WBC 15 /hpf (0 - 5); Urine pH 5.5 (5.0-8.0)
[2023-05-31 13:45] LABS: INR 1.02 (0.9-1.15); Partial Thromboplastin Time 24.9 SEC (24.5-34.5); Prothrombin Time 10.7 sec (9.3-11.8)
[2023-05-31 14:32] LABS: Alanine Aminotransferase 22 U/L (7-40); Albumin 4.4 g/dL (3.2-4.8); Alkaline Phosphatase 78 U/L (46-116); Anion Gap 7 (5-15); Aspartate Aminotransferase 20 U/L (13-40); BUN/Creatinine Ratio 13.5 (10.0-20.0); Bilirubin, Total 0.5 mg/dL (0.2-1.0); Blood Urea Nitrogen 14 mg/dL (9-23); Calcium 9.1 mg/dL (8.7-10.4); Carbon Dioxide 25 mmol/L (20-30); Chloride 110 mmol/L (98-107); Glucose 90 mg/dL (74-106); Potassium 4.9 mmol/L (3.5-5.1); Sodium 142 mmol/L (136-145); Total Protein 7.3 g/dL (5.7-8.2)
[~2023-06-04] VITALS: Ht 157.5 cm; Wt 82.1 kg
[~2023-06-04] MED LIST changes: +BUPIVACAINE HCL 50 ML ONE; +DexAMETHasone SOD PHOS 10MG/1ML VIAL INJ ONE; +HYDROmorphone HCL 2 MG/ML VL/or syr IV PRN; +LIDOCAINE W/ EPINEPHRINE 2% INJ 20ML VIAL ONE; +MEPERIDINE HCL (25 MG/ML) 1ML VIAL IV PRN; +MEPERIDINE HCL (25 MG/ML) 1ML VIAL ONE; +ONDANSETRON HCL 4 MG/2 ML VIAL IV PRN; +ONDANSETRON HCL 4 MG/2 ML VIAL ONE; +PROPOFOL 10 MG/ML 20 ML IV ONE; +ceFAZolin 2 GM/D5W100ml 100 ML IV ONE; +fentaNYL CITRATE 100 MCG/2 ML VL ONE
[2023-06-04 09:55] VITALS: PULSE 72; RESP 9; TEMP 77.7; O2SAT 99
[2023-06-04 10:30] VITALS: BP 135/75; PULSE 60; RESP 16; O2SAT 98
== END | disposition home or self-care (01) ==
LOC: SUR 07:37
PROVIDERS: ATTEND Surgery
DX: C50.912 Malignant neoplasm of unspecified site of left female breast (principal); E66.9 Obesity, unspecified
CPT/HCPCS: 36415; 38525; 80053; 81001; 85025; 85610; 85730; J1100; J2175; J2405; J2704; J3010; J3490

== ENCOUNTER → 2023-08-02 | Outpatient (CLI) | payer MEDICAID ==
[~2023-08-02] MED LIST changes: -BUPIVACAINE HCL 50 ML ONE; -DexAMETHasone SOD PHOS 10MG/1ML VIAL INJ ONE; -HYDROmorphone HCL 2 MG/ML VL/or syr IV PRN; -LIDOCAINE W/ EPINEPHRINE 2% INJ 20ML VIAL ONE; -MEPERIDINE HCL (25 MG/ML) 1ML VIAL IV PRN; -MEPERIDINE HCL (25 MG/ML) 1ML VIAL ONE; -ONDANSETRON HCL 4 MG/2 ML VIAL IV PRN; -ONDANSETRON HCL 4 MG/2 ML VIAL ONE; -PROPOFOL 10 MG/ML 20 ML IV ONE; -ceFAZolin 2 GM/D5W100ml 100 ML IV ONE; -fentaNYL CITRATE 100 MCG/2 ML VL ONE
[2023-08-02 09:33] LABS: Basophils # (auto) 0 10 ^3/uL (0-0.2); Basophils % (auto) 0.3 % (0.0-2.0); Eosinophils # (auto) 0.1 10 ^3/uL (0-0.8); Eosinophils % (auto) 1.9 % (0.0-7.0); Hematocrit 37.8 % (36.0-46.0); Hemoglobin 12.9 g/dL (12.2-16.2); Lymphocytes # (auto) 1.1 10 ^3/uL (0.4-5.4); Lymphocytes % (auto) 18.7 % (10.0-50.0); Mean Corpuscular Hemoglobin 31.3 pg (28.0-32.0); Mean Corpuscular Hgb Conc. 34.1 g/dL (32.0-36.0); Mean Corpuscular Volume 91.9 fL (80.0-100.0); Monocytes # (auto) 0.6 10 ^3/uL (0-1.3); Neutrophils % (auto) 69.1 % (37.0-80.0); Nucleated Red Blood Cells % 0.2 %; Red Blood Cells 4.11 10^6/uL (4.0-5.20); Red Cell Distribution Width 12.8 % (11.8-14.3); White Blood Cell 5.8 10^3/uL (4.4-10.8)
[2023-08-02 10:07] LABS: Alanine Aminotransferase 18 U/L (7-40); Albumin 4.5 g/dL (3.2-4.8); Alkaline Phosphatase 71 U/L (46-116); Anion Gap 9 (5-15); Aspartate Aminotransferase 21 U/L (13-40); BUN/Creatinine Ratio 14.9 (10.0-20.0); Bilirubin, Total 0.8 mg/dL (0.2-1.0); Blood Urea Nitrogen 15 mg/dL (9-23); Calcium 9.7 mg/dL (8.5-10.1); Carbon Dioxide 22 mmol/L (20-30); Chloride 108 mmol/L (98-107); Glucose 106 mg/dL (74-106); Potassium 4.4 mmol/L (3.5-5.1); Sodium 139 mmol/L (136-145); Total Protein 7.6 g/dL (5.7-8.2)
== END | disposition home or self-care (01) ==
LOC: LAB 08:36
PROVIDERS: ATTEND Internal Medicine
DX: C50.912 Malignant neoplasm of unspecified site of left female breast (principal)
CPT/HCPCS: 36415; 80053; 83615; 85025; 86300

== ENCOUNTER → 2024-01-18 | Outpatient (CLI) | payer MEDICAID ==
[2024-01-18 08:52] LABS: Basophils # (auto) 0 10 ^3/uL (0-0.2); Basophils % (auto) 0.7 % (0.0-2.0); Eosinophils # (auto) 0.2 10 ^3/uL (0-0.8); Eosinophils % (auto) 5.7 % (0.0-7.0); Hematocrit 37.1 % (36.0-46.0); Hemoglobin 12.8 g/dL (12.2-16.2); Lymphocytes # (auto) 0.6 10 ^3/uL (0.4-5.4); Lymphocytes % (auto) 16.2 % (10.0-50.0); Mean Corpuscular Hemoglobin 32.1 pg (28.0-32.0); Mean Corpuscular Hgb Conc. 34.7 g/dL (32.0-36.0); Mean Corpuscular Volume 92.6 fL (80.0-100.0); Monocytes # (auto) 0.5 10 ^3/uL (0-1.3); Monocytes % (auto) 12.3 % (0.0-12.0); Neutrophils # (auto) 2.6 10 ^3/uL (1.6-8.6); Neutrophils % (auto) 65.1 % (37.0-80.0); Nucleated Red Blood Cells % 0.2 %; White Blood Cell 3.9 10^3/uL (4.4-10.8)
[2024-01-18 10:27] LABS: Alanine Aminotransferase 28 U/L (7-40); Alkaline Phosphatase 78 U/L (46-116); Anion Gap 7 (5-15); Calcium 9.9 mg/dL (8.7-10.4); Carbon Dioxide 24 mmol/L (20-30); Chloride 112 mmol/L (98-107); Potassium 4.5 mmol/L (3.5-5.1); Sodium 143 mmol/L (136-145)
[2024-01-18 10:28] LABS: Aspartate Aminotransferase 16 U/L (13-40); Glucose 103 mg/dL (74-106)
[2024-01-18 10:29] LABS: BUN/Creatinine Ratio 26.1 (10.0-20.0); Blood Urea Nitrogen 23 mg/dL (9-23); LDL Cholesterol 113 mg/dL (< 100); Triglycerides 115 mg/dL (< 150)
[2024-01-18 10:30] LABS: Albumin 4.4 g/dL (3.2-4.8); Cholesterol 178 mg/dL (< 200); HDL Cholesterol 55 mg/dL (40-59)
[2024-01-18 10:31] LABS: Bilirubin, Total 0.7 mg/dL (0.2-1.0); Total Protein 7.3 g/dL (5.7-8.2)
== END | disposition home or self-care (01) ==
LOC: LAB 08:38
PROVIDERS: ATTEND Student in an Organized Health Care Education/Training Program
DX: C50.912 Malignant neoplasm of unspecified site of left female breast (principal); I13.0 Hypertensive heart and chronic kidney disease with heart failure and stage 1 through stage 4 chronic kidney disease, or unspecified chronic kidney disease; D69.6 Thrombocytopenia, unspecified; I70.0 Atherosclerosis of aorta; I50.9 Heart failure, unspecified; N18.9 Chronic kidney disease, unspecified
CPT/HCPCS: 36415; 80053; 80061; 85025

== ENCOUNTER 2024-05-20 14:50 | Inpatient (IN) | payer MEDICAID, OTHER ==
[~2024-05-20] VITALS: Ht 157.5 cm; Wt 88.5 kg
--- NOTE | 2024-05-20 15:24 | ED.PDOC ---
HPI Comments HPI: HPI: Poor Historian. 63y F who presents to the ED for chief complaint of chest pain. Pt states she woke up this AM and states she started to have chest pain, dizziness, and lightheadedness. Pt states she started to feel the room spin but denies any associated loss of consciousness. Pt states she continued to have substernal chest pain, describing it as tightness, constant, non-radiating, with associated shortness of breath when taking deep breaths. Pt otherwise denies any associated exacerbating or relieving factors. Pt states she has been under severe stress over the past few months including the loss of her son and recently finishing her breast cancer treatment. Pt otherwise denies any other symptoms at this time. Vitals T: 98.7 F RR: 20 HR: 114 BP: 147/104 O2: 96 % on RA PMH: breast cancer, Hypertension, chronic kidney disease, CHF , PSH: Tonsillectomy Social hx: denies tobacco use, heavy ETOH use, denies drug use medications; unknown allergies: NKDA REVIEW OF SYSTEMS: CONSTITUTIONAL: Denies acute: fever, diaphoresis, chills, generalized weakness. HEAD: Denies acute: headache, photophobia Eyes: Denies acute: Double vision, vision loss, eye pain, eye discharge. EARS: Denies acute: tinnitus, hearing loss, ear discharge, ear pain, THROAT: Denies acute: sore throat, swelling, difficulty swallowing , pain with swallowing, change in voice. NECK: Denies acute: neck pain, neck swelling, stiff neck. HEART: Denies acute : palpitations, LUNGS: Denies acute: wheezing, cough, hemoptysis ABDOMEN: Denies acute: abdominal pain, Nausea, Vomiting, diarrhea, melena , hematemesis, hematochezia SKIN: Denies acute: rash, redness, lesions, itchiness. EXTREMITIES: Denies acute: calf pain, numbness, tingling, weakness, denies pain in extremity. Denies acute: Low back pain. Neuro: Denies acute: focal neurological deficit, motor or sensory focal neurological deficit, tremors, seizure like activity, confusion, change in mental status, loss of bowel or bladder function, cauda equina like symptoms. : Denies acute: dysuria, hematuria, flank pain, increase in urinary frequency. PSYCH: Denies acute: hallucination, suicidal ideation, homicidal ideation. FEMALE: Denies acute: abnormal vaginal bleeding, foul odor, unusual discharge. PHYSICAL EXAM: General: no acute distress, awake and alert. Head: normocephalic, atraumatic. Neck: supple, trachea is midline, no swelling. Throat: Normal phonation. Eyes:, no erythema, no purulent discharge, no proptosis, no icterus. Heart: regular tachycardic, no significant murmur appreciated. Lungs: no apparent respiratory distress, Able to speak in full sentences. No wheezing, no rhonchi, no crackles. No stridors Clear to auscultation bilaterally. Abdomen: non tender to palpation, non distended, soft, no guarding, no rebound, + bowel sounds. Obese Neuro: Awake, Alert, oriented to name, self, situation, follows commands GCS=15. Speech is normal. Skin: no petechia, no purpura, no cyanosis, non-pale, not jaundice. Lower extremities: --no - Pitting edema no deformity, no focal swelling, no calf TTP. Makes eye contact. moves all four extremities. Face: no apparent facial droop. Ambulating in the ED independently. Chief Complaint: chest pain Time Seen by MD: 15:40 Primary Care Provider: sophie Reviewed Notes: Nurses Notes, Allergies Allergies: Coded Allergies: NO KNOWN ALLERGIES (Unverified , 03/12/12) Home Meds Active Scripts Acetaminophen (Tylenol 8 Hour Arthritis) 650 Mg Tab, 650 MG PO TID, #30 TAB Prov:VANGIE GOSS 12/07/22 Reported Medications Metoprolol Succinate (Toprol Xl) 25 Mg Tab, 25 MG PO BID, TAB 04/16/23 Lisinopril (Lisinopril) 10 Mg Tab, 10 MG PO DAILY, TAB 04/16/23 Fluticasone Propionate (FLOVENT HFA 110Mcg INH) 110 Mcg Ih, 110 MCG INH Q12HR for 30 Days, MCG 01/26/18 Dorzolamide-Timolol (Dorzolamide Hcl/Timolol M) 1 Ml Елена, 1 DROP EACHEYE BID, #10 ML 6 Refills 01/26/18 Brimonidine Tartrate (Brimonidine Tartrate) 0.15 % Елена, 1 DROP OP TID, DROP 01/26/18 Latanoprost (LATANOPROST) 0.005 % Елена, 1 DROP EACHEYE QPM, #7.5 ML 3 Refills 01/26/18 Information Source: Patient Mode of Arrival: Wheelchair Brought in by: self Past Medical History PAST MEDICAL HISTORY: Anemia, CHF, CKF, HTN, Liver Surgical History: Tonsillectomy ELECTRICAL CONTROL ASSEMBLER History: No Pertinent ELECTRICAL CONTROL ASSEMBLER History Family History Family History: No family hx of DM, No family hx of Heart holly, No family hx of HTN Social History Smoker: Non-Smoker Alcohol: Heavy Drugs: Denies Drug Use Lives In: Home Was a procedure done? Was a procedure done?: No CP Differential Dx Differential Diagnosis: N/A Differential Diagnosis: Other (Ddx include but not limitied to gastritis, musculoskeletal pain, radiculopathy, atypical chest pain, dissection, aneurysm, ACS, unstable angina, hiatal hernia, GERD, anxiety, costochondritis, PE, pneumothroax, neoplasm, cardiac ischemia, drug abuse, anemia.) X-Ray, Labs, Meds, VS Vital Signs Date Time Temp Pulse Resp B/P (MAP) Pulse Ox O2 Delivery O2 Flow Rate FiO2 05/20/24 19:36 98.0 107 141/95 (110) 98.0 05/20/24 16:36 137/86 05/20/24 16:33 98.7 114 18 137/86 (103) 97 98.7 05/20/24 16:33 114 05/20/24 15:23 127 05/20/24 15:11 98.7 114 20 147/104 (118) 96 158/124 (135) Lab Test 05/20/24 19:15 05/20/24 17:15 05/20/24 15:57 05/20/24 15:37 Range/Units Troponin I High Sensitivity 7 5 3 L </=34 ng/L White Blood Count 6.2 4.4-10.8 10^3/uL Red Blood Count 4.55 4.0-5.20 10^6/uL Hemoglobin 14.7 12.2-16.2 g/dL Hematocrit 42.4 36.0-46.0 % Mean Corpuscular Volume 93.2 80.0-100.0 fL Mean Corpuscular Hemoglobin 32.4 H 28.0-32.0 pg Mean Corpuscular Hemoglobin Concent 34.8 32.0-36.0 g/dL Red Cell Distribution Width 13.2 11.8-14.3 % Platelet Count 157 140-450 10^3/uL Mean Platelet Volume 7.6 6.9-10.8 fL Neutrophils (%) (Auto) 72.3 37.0-80.0 % Lymphocytes (%) (Auto) 16.9 10.0-50.0 % Monocytes (%) (Auto) 8.6 0.0-12.0 % Eosinophils (%) (Auto) 1.4 0.0-7.0 % Basophils (%) (Auto) 0.8 0.0-2.0 % Neutrophils # (Auto) 4.5 1.6-8.6 10 ^3/uL Lymphocytes # (Auto) 1.1 0.4-5.4 10 ^3/uL Monocytes # (Auto) 0.5 0-1.3 10 ^3/uL Eosinophils # (Auto) 0.1 0-0.8 10 ^3/uL Basophils # (Auto) 0 0-0.2 10 ^3/uL Nucleated Red Blood Cells 0.1 % D-Dimer, Quantitative 0.35 0.0-0.49 mg/L FEU Sodium Level 143 136-145 mmol/L Potassium Level 4.3 3.5-5.1 mmol/L Chloride Level 111 H 98-107 mmol/L Carbon Dioxide Level 23 20-31 mmol/L Anion Gap 9 5-15 Blood Urea Nitrogen 18 9-23 mg/dL Creatinine 0.99 0.550-1.02 mg/dL Glomerular Filtration Rate Calc 63 >90 mL/min BUN/Creatinine Ratio 18.2 10.0-20.0 Serum Glucose 105 74-106 mg/dL Calcium Level 10.8 H 8.7-10.4 mg/dL Magnesium Level 2.2 1.6-2.6 mg/dL Total Bilirubin 0.8 0.2-1.0 mg/dL Aspartate Amino Transferase (AST) 22 13-40 U/L Alanine Aminotransferase (ALT) 33 7-40 U/L Alkaline Phosphatase 81 46-116 U/L B-Type Natriuretic Peptide 51.26 0-100 pg/mL Total Protein 8.2 5.7-8.2 g/dL Albumin 5.1 H 3.2-4.8 g/dL Lactic Acid Level 1.0 0.4-2.0 mmol/L Test 05/20/24 15:23 05/20/24 15:19 Range/Units Urine Color Yellow Yellow Urine Clarity Turbid H Clear Urine pH 5.5 5.0-9.0 Urine Specific [place] 1.030 1.001-1.035 Urine Protein 1+ H Negative Urine Ketones Negative Negative Urine Blood Trace H Negative /uL Urine Nitrite Negative Negative Urine Bilirubin Negative Negative Urine Urobilinogen Normal Negative mg/dL Urine Leukocyte Esterase 3+ Negative /uL Urine RBC 7 0 - 4 /hpf Urine WBC 73 0 - 5 /hpf Urine Squamous Epithelial Cells Mod <5 /hpf Urine Bacteria Few H None Seen /hpf Urine Mucus Few None Seen Urine Glucose Normal Normal mg/dL POC Glucose 113 H 70-106 mg/dl Current Medications Medications (Trade) Dose Ordered Sig/Lus[place] Route Start Time Stop Time Status Last Admin Aspirin 325 mg ONCE ONCE PO 05/20/24 16:00 05/20/24 16:21 DC 05/20/24 16:36 Nitroglycerin (Ntrostat Sublingual) 0.4 mg ONCE ONCE SL 05/20/24 16:00 05/20/24 16:22 DC 05/20/24 16:36 Meclizine HCl (Antivert Tablet) 25 mg ONCE ONCE PO 05/20/24 16:00 05/20/24 16:22 DC 05/20/24 16:36 [place] [id number] Ph: [phone] DIAGNOSTIC IMAGING Diagnostic Imaging Report : [id number] Signed PATIENT: MAYA DE JESUS ACCT: [id number] UNIT: [id number] : 1960 LOC: ER ROOM / BED: / AGE / SEX: 63 / F ADM STATUS: REG ER SERVICE 1523 ORDERING PHYSICIAN: DALTON VALDES DO PROCEDURE(s): CXRP - CHEST PORTABLE REASON: cp ORDER NUMBER(s): [id number], ACCESSION NUMBER(s): [id number] CHEST RADIOGRAPH Indication: cp Technique: Single frontal view of the chest was obtained Comparison: EKG on DOS: 05/09/22, CXR1 on DOS: 05/09/22 FINDINGS: Lines and Tubes: None. Surgical clips projecting over the left axilla. Lungs: No focal consolidation. Pleura: No effusion. No pneumothorax. Cardiomediastinal contours: Unremarkable Bones: No acute osseous abnormality. IMPRESSION: 1. No radiographic evidence of acute cardiopulmonary disease. HS:Y ATED BY: STEPHEN SANDERS DO DICTATED DATE/TIME: 05/20/24 1548 SIGNED BY: STEPHEN SANDERS DO SIGNED DATE/TIME: 05/20/24 1548 CC: Time of 1ST Reevaluation: 20:11 Reevaluation 1ST: Improved Patient Education/Counseling: Diagnosis, Treatment Family Education/Counseling: No Family Present Comments Patient presented with the above HPI.---cardiac ---workup was initiated. patient was found with the above mentioned diagnosis. Patient was given: Meclizine for vertigo like presentation, fluids, aspirin and nitroglycerin for her chest pain, Rocephin for UTI. Patient ED course and VS have been stabilized. Patient has been reassessed in the ED and remained in a stable condition. Pertinent incidental findings were discussed with the patient and/or family. Patient/family voices understanding and is agreeable with plan. Patient has been observed in the ED adequate length of time to insure improvement/stability. Orthostatics were ordered. patient was admitted to the medicine team for further evaluation and treatment of their presentation. All the reports of any imaging studies that were ordered by myself were reviewed by myself. Departure 1 Departure Time of Disposition: 18:00 Impression: Primary Impression: Chest pain Additional Impressions: UTI (urinary tract infection) Dizziness Disposition: ADMITTED INPATIENT Admit to: [facility] Condition: Guarded Discharged With: Self Critical Care Note Critical Care Time?: No Heart Score Heart Score: Heart Score Response (Comments) Value History Moderate Suspicious 1 EKG Normal 0 Age >65 2 Risk Factors 1 or 2 risk factors 1 Troponin Normal limit 0 Total 4 I personally scribed for DALTON VALDES DO ([facility]) on 05/20/24 at 15:24. Electronically submitted by Elyssa Hernandez ([email or web address]). I personally scribed for DALTON VALDES DO ([email or web address]) on 05/20/24 at 15:42. Electronically submitted by Elyssa Hernandez ([email or web address]). I personally scribed for DALTON VALDES DO ([email or web address]) on 05/20/24 at 16:22. Rochelle ctronically submitted by Elyssa Hernandez ([email or web address]). DALTON VALDES DO May 20, 2024 15:24
--- NOTE | 2024-05-20 15:50 | DVH ---
CHEST RADIOGRAPH Indication: cp Technique: Single frontal view of the chest was obtained Comparison: EKG on DOS: 05/09/22, CXR1 on DOS: 05/09/22 FINDINGS: Lines and Tubes: None. Surgical clips projecting over the left axilla. Lungs: No focal consolidation. Pleura: No effusion. No pneumothorax. Cardiomediastinal contours: Unremarkable Bones: No acute osseous abnormality. IMPRESSION: 1. No radiographic evidence of acute cardiopulmonary disease. HS:Y
[2024-05-20 16:08] LABS: Urine Bacteria FEW /hpf (None Seen); Urine Blood TRACE /uL (Negative); Urine Clarity Turbid (Clear); Urine Color Yellow (Yellow); Urine Mucus FEW (None Seen); Urine Protein, UAD 1+ (Negative); Urine Urobilinogen Normal (Negative); Urine WBC 73 /hpf (0 - 5); Urine pH 5.5 (5.0-9.0)
[2024-05-20 16:16] LABS: Basophils # (auto) 0 10 ^3/uL (0-0.2); Basophils % (auto) 0.8 % (0.0-2.0); Eosinophils # (auto) 0.1 10 ^3/uL (0-0.8); Eosinophils % (auto) 1.4 % (0.0-7.0); Hematocrit 42.4 % (36.0-46.0); Hemoglobin 14.7 g/dL (12.2-16.2); Lymphocytes # (auto) 1.1 10 ^3/uL (0.4-5.4); Lymphocytes % (auto) 16.9 % (10.0-50.0); Mean Corpuscular Hemoglobin 32.4 pg (28.0-32.0); Mean Corpuscular Hgb Conc. 34.8 g/dL (32.0-36.0); Mean Corpuscular Volume 93.2 fL (80.0-100.0); Monocytes # (auto) 0.5 10 ^3/uL (0-1.3); Monocytes % (auto) 8.6 % (0.0-12.0); Neutrophils # (auto) 4.5 10 ^3/uL (1.6-8.6); Neutrophils % (auto) 72.3 % (37.0-80.0); Nucleated Red Blood Cells % 0.1 %; Platelet Count (auto) 157 10^3/uL (140-450); Red Blood Cells 4.55 10^6/uL (4.0-5.20); Red Cell Distribution Width 13.2 % (11.8-14.3); White Blood Cell 6.2 10^3/uL (4.4-10.8)
[2024-05-20 16:34] LABS: Alanine Aminotransferase 33 U/L (7-40); Albumin 5.1 g/dL (3.2-4.8); Alkaline Phosphatase 81 U/L (46-116); Anion Gap 9 (5-15); Aspartate Aminotransferase 22 U/L (13-40); BUN/Creatinine Ratio 18.2 (10.0-20.0); Bilirubin, Total 0.8 mg/dL (0.2-1.0); Blood Urea Nitrogen 18 mg/dL (9-23); Calcium 10.8 mg/dL (8.7-10.4); Carbon Dioxide 23 mmol/L (20-31); Chloride 111 mmol/L (98-107); Glucose 105 mg/dL (74-106); Magnesium 2.2 mg/dL (1.6-2.6); Potassium 4.3 mmol/L (3.5-5.1); Sodium 143 mmol/L (136-145); Total Protein 8.2 g/dL (5.7-8.2)
[2024-05-20] MEDS: ASPirin 325 MG TAB PO ONE (16:36)
[2024-05-20] MEDS: NITROGLYCERIN 0.4 MG SL TAB SL ONE (16:36)
[2024-05-20] MEDS: MECLIZINE HCL 25 MG TAB PO ONE (16:36)
--- NOTE | 2024-05-20 18:32 | ECG ---
[facility] Test Date: 2024-05-20 Test Time: 15:23:35 Pat Name: MAYA DE JESUS Department: ER Room: [address] [place] [address] Gender: F [employer]eration Systems Installer: GLO : 1960 Requested By: DALTON VALDES Order Number: [id number] Reading MD: Luigi Beard Measurements Intervals [place] Rate: 127 P: 22 CA: 148 QRS: 4 QRSD: 84 T: 55 QT: 307 QTc: 447 Interpretive Statements Sinus tachycardia Baseline wander in lead(s) V1 Electronically Signed On 05-21-2024 14:17:43 PST by Luigi Beard Please click the below link to view image of tracing.
[2024-05-20] MEDS ORDERED: ACETAMINOPHEN 325 MG TAB PO PRN (20:30)
[2024-05-20] MEDS ORDERED: MORPHINE SULFATE INJ 2 MG/ml SYRG IV PRN (20:30)
[2024-05-20] MEDS ORDERED: NITROGLYCERIN 0.4 MG SL TAB SL PRN (20:30)
[2024-05-20] MEDS ORDERED: ONDANSETRON HCL 4 MG/2 ML VIAL IV PRN (20:30)
[2024-05-20] MEDS: cefTRIAXone 1GM/50ML D5W 50 ML IV ONE (21:21)
--- NOTE | 2024-05-20 21:29 | DVH ---
EXAM: CT HEAD WITHOUT CONTRAST INDICATION: dizzy TECHNIQUE: CT of the head without intravenous contrast. Radiation Dose Information: CT Dose: CTDI volume is 53.43 mGy. Dose-length product is 856.53 mGy*cm The dose indicators for CT are the volume Computed Tomography (CT) Dose Index (CTDIvol) and the Dose Length Product (DLP), and are measured in units of mGy and mGy-cm, respectively. These indicators are not patient dose, but values generated from the CT scanner acquisition factors. The report includes radiation exposure data for exposures received during this examination. COMPARISON: HEAD WITHOUT CONTRAST on DOS: 05/10/22, CT CHEST ABD PELVIS WO CONTRAS on DOS: 05/09/22, CERVICAL WITHOUT CONTRAST on DOS: 05/09/22 FINDINGS: There is no evidence of acute intracranial hemorrhage, extra-axial collection, mass effect, midline s hift, herniation or hydrocephalus. The ventricles, sulci and cisterns are age appropriate. The elliott-white differentiation is intact. Patchy periventricular and subcortical white matter hypoattenuation is nonspecific but may be related to small vessel ischemic disease. The visualized paranasal sinuses and mastoid air cells are clear. The surrounding soft tissues and osseous structures are unremarkable. Prosthesis in the right orbit. IMPRESSION: 1. No intracranial hemorrhage. 2. No CT findings of territorial ischemia.
--- NOTE | 2024-05-20 22:00 | DVHHPRES ---
History of Present Illness Resident Creating Document: GERI ROSARIO RESIDENT History of Present Illness Patient is 63 years old female with past medical history of abdominal aortic aneurysm/left renal artery aneurysm with a family history of aneurysm of the brain, CHF, carcinoma of the left breast, status post left axillary surgery, suspected CKD, anemia came with a complaint of chest pain. Reported having chest pain on the left side of the chest, sudden onset after lunch today, 01/01, sharp in nature likely needle, no radiation, pain reduced with the pain medication. Pain was associated with the shortness of breath and some palpitation like her heart was pounding lasting 1-2 minutes. Patient also endorsed lightheadedness and dizziness going on for last 3 weeks which especially woke her up last night from sleep. Patient reported that she woke up from sleep in the morning due to dizziness and headache, sharp in nature, mostly in the back of the neck. Patient reported that she had a left axillary surgery due to left breast carcinoma for which she had radiation last 1 in the December 04, she also had left axillary surgery likely for removal of the axillary lymph node. Patient denied any fever, cough, change in vision, dysarthria, constipation, diarrhea, acute joint pain or swelling. Initial EKG revealed sinus tachycardia, no acute ST or T-wave changes, D-dimer 0.35, troponin I negative, other lab workup revealed calcium 10.8, serum creatinine 0.99, , GFR 63, urinalysis revealed UTI with leukocyte esterase 3+, WBC 73, RBC 7, bacteria few. X-ray negative for acute cardiopulmonary disease. CT head negative for acute intracranial hemorrhage or any mass lesion. Surgeon Dr. Reyes PCP Dr. Maier Past Medical History abdominal aortic aneurysm/left renal artery aneurysm with a family history of aneurysm of the brain, CHF, carcinoma of the left breast, status post left axillary surgery, suspected CKD, anemia Past Surgical History Tonsillectomy, left axillary surgery likely to remove lymph nodes as patient has a history of carcinoma of the left breast Family History Dad and brother had brain aneurysm, mom healthy Past Social History Lives with son, alcoholic, denies smoking, use marijuana Review of Systems Review of Systems Allergy- NKDA Patient was seen today at the bedside. Patient reports pain is a little bit better Cardiovascular- deny acute chest pain or shortness of breath or cough or palpitation Respiratory- denies cough or short of breath or wheezing Gastrointestinal- denies any rectal bleeding, nausea or vomiting Musculoskeletal-denies acute joint swelling or tenderness or redness Neurological- denies acute dysarthria, dysphagia, change in vision Psychiatry- denies depression or SI or HI Skin- denies acute rash or purpura Allergies: Coded Allergies: NO KNOWN ALLERGIES (Unverified , 03/12/12) Medications Current Medications Medications Dose Ordered Sig/Luisana Route Start Time Stop Time Status Last Admin Dose Admin Sodium Chloride 10 ml Q8HR IV 05/20/24 22:00 Ondansetron HCl 4 mg Q4HP PRN IV 05/20/24 20:30 Acetaminophen 650 mg Q6HP PRN PO 05/20/24 20:30 Morphine Sulfate 2 mg Q4HPRN PRN IV 05/20/24 20:30 Nitroglycerin 0.4 mg Q5MINP PRN SL 05/20/24 20:30 Morphine Sulfate 2 mg Q30M PRN IV 05/20/24 20:30 Exam Vital Signs Vital Signs Date Time Temp Pulse Resp B/P (MAP) Pulse Ox O2 Delivery O2 Flow Rate FiO2 05/20/24 21:39 146/96 05/20/24 21:38 97.6 91 18 97 97.6 Exam General examination- awake, alert, oriented, conversant HEENT- PEERLA, no acute nasal discharge Cardiovascular- S1-S2 audible, rate and rhythm regular, no murmur Respiratory- CTAB, no wheeze or rhonchi Chest exam-left breast tenderness Gastrointestinal-nontender, bowel sound+. Nondistended Musculoskeletal-no acute joint swelling or tenderness or redness Lower extremity- no leg edema Neurological- cranial nerves intact, no acute dysarthria or dysphagia Psychiatry- denies depression or SI or HI Skin- no acute rash or purpura Labs/Xrays Labs Test 05/20/24 19:15 05/20/24 15:57 05/20/24 15:37 05/20/24 15:23 Range/Units Troponin I High Sensitivity 7 </=34 ng/L White Blood Count 6.2 4.4-10.8 10^3/uL Red Blood Count 4.55 4.0-5.20 10^6/uL Hemoglobin 14.7 12.2-16.2 g/dL Hematocrit 42.4 36.0-46.0 % Mean Corpuscular Volume 93.2 80.0-100.0 fL Mean Corpuscular Hemoglobin 32.4 H 28.0-32.0 pg Mean Corpuscular Hemoglobin Concent 34.8 32.0-36.0 g/dL Red Cell Distribution Width 13.2 11.8-14.3 % Platelet Count 157 140-450 10^3/uL Mean Platelet Volume 7.6 6.9-10.8 fL Neutrophils (%) (Auto) 72.3 37.0-80.0 % Lymphocytes (%) (Auto) 16.9 10.0-50.0 % Monocytes (%) (Auto) 8.6 0.0-12.0 % Eosinophils (%) (Auto) 1.4 0.0-7.0 % Basophils (%) (Auto) 0.8 0.0-2.0 % Neutrophils # (Auto) 4.5 1.6-8.6 10 ^3/uL Lymphocytes # (Auto) 1.1 0.4-5.4 10 ^3/uL Monocytes # (Auto) 0.5 0-1.3 10 ^3/uL Eosinophils # (Auto) 0.1 0-0.8 10 ^3/uL Basophils # (Auto) 0 0-0.2 10 ^3/uL Nucleated Red Blood Cells 0.1 % D-Dimer, Quantitative 0.35 0.0-0.49 mg/L FEU Sodium Level 143 136-145 mmol/L Potassium Level 4.3 3.5-5.1 mmol/L Chloride Level 111 H 98-107 mmol/L Carbon Dioxide Level 23 20-31 mmol/L Anion Gap 9 5-15 Blood Urea Nitrogen 18 9-23 mg/dL Creatinine 0.99 0.550-1.02 mg/dL Glomerular Filtration Rate Calc 63 >90 mL/min BUN/Creatinine Ratio 18.2 10.0-20.0 Serum Glucose 105 74-106 mg/dL Calcium Level 10.8 H 8.7-10.4 mg/dL Magnesium Level 2.2 1.6-2.6 mg/dL Total Bilirubin 0.8 0.2-1.0 mg/dL Aspartate Amino Transferase (AST) 22 13-40 U/L Alanine Aminotransferase (ALT) 33 7-40 U/L Alkaline Phosphatase 81 46-116 U/L B-Type Natriuretic Peptide 51.26 0-100 pg/mL Total Protein 8.2 5.7-8.2 g/dL Albumin 5.1 H 3.2-4.8 g/dL Lactic Acid Level 1.0 0.4-2.0 mmol/L Urine Color Yellow Yellow Urine Clarity Turbid H Clear Urine pH 5.5 5.0-9.0 Urine Specific [place] 1.030 1.001-1.035 Urine Protein 1+ H Negative Urine Ketones Negative Negative Urine Blood Trace H Negative /uL Urine Nitrite Negative Negative Urine Bilirubin Negative Negative Urine Urobilinogen Normal Negative mg/dL Urine Leukocyte Esterase 3+ Negative /uL Urine RBC 7 0 - 4 /hpf Urine WBC 73 0 - 5 /hpf Urine Squamous Epithelial Cells Mod <5 /hpf Urine Bacteria Few H None Seen /hpf Urine Mucus Few None Seen Urine Glucose Normal Normal mg/dL Test 05/20/24 15:19 Range/Units POC Glucose 113 H 70-106 mg/dl Assessment/Plan Assessment/Plan #Acute chest pain cardiac versus carcinoma of the breast -rule out acute coronary syndrome -troponin I negative-3> 5> 7 -D-dimer 0.35, nonsignificant -EKG sinus tachycardia, no ST elevation or T-wave changes -CXR-No radiographic evidence of acute cardiopulmonary disease. -pending echo 2D -continue pain medication as prescribed # UTI -urinalysis leukocyte esterase 3+, WBC 73, RBC 7, bacteria few -pending uterine CS -continue ceftriaxone 1 g IV daily -maintain adequate hydration, avoid dehydration #Hypertension -continue lisinopril 10 mg p.o. daily -continue metoprolol XL 25 mg p.o. b.i.d. --continue hydralazine 10 mg IV q.6h p.r.n. -monitor BP # dizziness, lightheadedness --rule out metastasis to the brain -CT head. No intracranial hemorrhage. No CT findings of territorial ischemia. --EKG sinus tachycardia -CT head negative for acute intracranial pathology -orthostatic vitals -pending echo 2D -continue pain medication as prescribed # headache --rule out metastasis to the brain -CT head. No intracranial hemorrhage. No CT findings of territorial ischemia. -EKG sinus tachycardia -pending echo 2D # CHF --continue lisinopril 10 mg p.o. daily -continue metoprolol XL 25 mg p.o. b.i.d. --continue hydralazine 10 mg IV q.6h p.r.n. # COPD, no acute exacerbation -nebulization p.r.n. with albuterol and ipratropium bromide #Left renal artery aneurysm -follow up outpatient #Left breast carcinoma -status post radiation therapy, last one was in December 05, 2023 -history of left axillary surgery likely to remove axillary lymph node due to carcinoma of the breast -surgeon for the patient-Dr. Reyes -follow up outpatient # CKD stage II -GFR 63 -avoid dehydration and nephrotoxic drugs Goals of care/advance care planning; FULL CODE; discussed with the patient >15 minutes PUD prophylaxis: Famotidine DVT prophylaxis: Lovenox PCP-Dr. Maier -Surgeon-Dr. Reyes Plan discussed with Dr. Alberto, nursing staff, patient Total time spent on patient evaluation, chart review, assessment and plan, discussion discussion >30 minutes Plan discussed with: Patient Plan discussed with: Patient, Other (RN) My Orders Orders - GERI ROSARIO RESIDENT Procedure Category Date Status Time Admit ADMIT 05/20/24 Transmitted 20:28 Code Status CODE 05/20/24 Transmitted 20:28 Sodium Chloride Lock PHA 05/20/24 In Process (Saline Lock Ns) 22:00 Ondansetron Hcl PHA 05/20/24 In Process (Zofran) 20:30 Complete Blood Count LAB 05/21/24 Verified 04:00 Comprehensive LAB 05/21/24 Verified Metabolic Panel 04:00 Echo 2d Mode Cardiac US 05/20/24 Logged DOP 20:28 Acetaminophen Tablet PHA 05/20/24 In Process (Tylenol Tablet) 20:30 Morphine Sulfate PHA 05/20/24 In Process Injection 20:30 Nitroglycerin PHA 05/20/24 In Process Sublingual (Ntrostat 20:30 Morphine Sulfate PHA 05/20/24 In Process Injection 20:30 Oxygen By Nasal RT 05/20/24 Transmitted Cannula 20:28 Stat Ekg For Chest BLAIR 05/20/24 In Process Pain 20:28 Notify Of Changes BLAIR 05/20/24 In Process From Base 20:28 Member Service Specialist For BLAIR 05/20/24 In Process 24 Hours 20:28 Emergency Dysrhythmia BLAIR 05/20/24 In Process Protocol 20:28 Rhythm Strips Once [facility] 05/20/24 In Process Every Shift 20:28 Date of Service: May 20, 2024 Billing Provider: MCKINLEY ALBERTO MD Common Visit Codes: [id number] INP/OBS CARE (HIGH) Secondary Visit Codes: [id number] CARE PLAN 30 MINUTES GERI ROSARIO RESIDENT May 20, 2024 22:00 MCKINLEY ALBERTO MD May 21, 2024 07:03
[2024-05-20] MEDS: SODIUM CHLOR 0.9% PF (SALINE LOCK) 10ML VIAL/SYR IV SCH (22:06)
[2024-05-20] MEDS: ASPirin 81 mg TAB PO ONE (22:14)
[2024-05-20] MEDS: METOPROLOL SUCCINATE XL 50 MG TAB PO ONE (23:15)
[2024-05-21] VITALS (10 sets, daily range): BP systolic 109–130; BP diastolic 63–88; PULSE 64–73; RESP 17–20; TEMP 97.7–98.6; O2SAT 96–99
[2024-05-21] MEDS ORDERED: hydrALAZINE HCL 20 MG/ML VL IV ONE (00:45)
[2024-05-21] MEDS ORDERED: LISINOPRIL 5 MG TAB PO ONE (00:45)
[2024-05-21] MEDS ORDERED: hydrALAZINE HCL 20 MG/ML VL IV PRN (00:45)
[2024-05-21] MEDS ORDERED: FAMOTIDINE 20 MG TAB PO ONE (01:00)
[2024-05-21] MEDS ORDERED: ENOXAPARIN SOD 40 MG/0.4 ML SYRINGE SC ONE (01:00)
[2024-05-21 06:35] LABS: Alanine Aminotransferase 28 U/L (7-40); Albumin 4.1 g/dL (3.2-4.8); Alkaline Phosphatase 69 U/L (46-116); Anion Gap 9 (5-15); Aspartate Aminotransferase 15 U/L (13-40); BUN/Creatinine Ratio 18.2 (10.0-20.0); Bilirubin, Total 0.5 mg/dL (0.2-1.0); Blood Alcohol < 3.0 mg/dL (<10); Blood Urea Nitrogen 22 mg/dL (9-23); CRP High Sensitivity 0.06 mg/dL (<1.0); Carbon Dioxide 22 mmol/L (20-31); Chloride 110 mmol/L (98-107); Glucose 123 mg/dL (74-106); Sodium 141 mmol/L (136-145); Total Protein 6.7 g/dL (5.7-8.2)
[2024-05-21 06:39] LABS: Basophils # (auto) 0 10 ^3/uL (0-0.2); Basophils % (auto) 0.4 % (0.0-2.0); Eosinophils # (auto) 0.2 10 ^3/uL (0-0.8); Eosinophils % (auto) 4.2 % (0.0-7.0); Hematocrit 35.6 % (36.0-46.0); Hemoglobin 12.5 g/dL (12.2-16.2); Lymphocytes # (auto) 1.4 10 ^3/uL (0.4-5.4); Lymphocytes % (auto) 26.3 % (10.0-50.0); Mean Corpuscular Hemoglobin 33.4 pg (28.0-32.0); Mean Corpuscular Volume 95.6 fL (80.0-100.0); Monocytes # (auto) 0.6 10 ^3/uL (0-1.3); Monocytes % (auto) 11.2 % (0.0-12.0); Neutrophils % (auto) 57.9 % (37.0-80.0); Nucleated Red Blood Cells % 0.1 %; Platelet Count (auto) 127 10^3/uL (140-450); Red Blood Cells 3.73 10^6/uL (4.0-5.20); White Blood Cell 5.2 10^3/uL (4.4-10.8)
[2024-05-21 09:34] LABS: Erythrocyte Sedimentation Rate 28 mm/hr (0-20)
[2024-05-21] MEDS: METOPROLOL SUCCINATE XL 50 MG TAB PO SCH (09:46)
[2024-05-21] MEDS: LISINOPRIL 5 MG TAB PO SCH (09:48)
[2024-05-21] MEDS: cefTRIAXone 1GM/50ML D5W 50 ML IV SCH (09:49)
[2024-05-21] MEDS: ASPirin 81 mg TAB PO SCH (10:00)
[2024-05-21] MEDS: DORZOLAM-TIMOLOL(2/0.5%) OPTH(EYE) SOLN 10ML EACHEYE SCH (10:00)
--- NOTE | 2024-05-21 13:44 | DVHSR ---
APPROVED REPORT EXAM: Two-dimensional and M-mode echocardiogram with Doppler and color Doppler. Blood Pressure: 115/70 mmHg INDICATION Chest Pain Dizziness and Vertigo lightheadedness RISK FACTORS Height: 63, Weight: 189 DIMENSIONS LVDd4.2 (3.8-5.7cm)LA (2D)4.1 (1.9-4.0cm)Aortic Root3.6 (2.0-3.7cm) LVDs3.1 (2.5-4.0cm)LA (MM) (1.9-4.0cm)Aortic Cusp Exc1.3 (1.5-2.0cm) EF (%) 60.0 (55-70%)Rt. Atrium5.0 (1.9-4.0cm)Asc. Aorta2.8 cm Mitral Valve MitralMitral Stenosis E wave0.84m/sMV Mean GR.mmHg A wave1.10m/sMV Peak GR.mmHg E/A ratio0.82D MVAcm2 DECEL [id number] 1/2 [id number] IVRTmsDop MVA2.17cm2 Aortic Valve Aortic ValveAortic Stenosis V11.24m/Lenard Mean GR.7mmHg V21.79m/Lenard Peak GR.13mmHg LVOT Diameter2.4 (1.8-2.4cm)Doppler AVA3.13cm2 AI P 1/2 Caxt570.73ms Pulmonic Valve V20.81m/s Tricuspid Valve TR Velocity2.21m/s [id number] Other Information Technically limited study due to body habitus. Patient sensitive to touch. Conclusion Normal left ventricular size and dimension. Normal left ventricular systolic function estimated ejec tion fraction 55%. There is a grade one diastolic dysfunction. Normal right ventricular size and dimension. Normal right ventricular systolic function. Normal pranav trial size and dimension. Normal biatrial size and dimension. Normal aortic valve structure and function. Normal Mitral valve structure and function. Normal tricuspid valve structure function. The pulmonary valve is grossly normal. No pericardial effusion.
[2024-05-21] MEDS: BRIMONIDINE 0.2% OPTH Soln 5ml OP SCH (15:06)
--- NOTE | 2024-05-21 17:10 | DVHPNRES ---
Progress Note Date Seen: May 21, 2024 Resident Creating Document: NEYDA MAYBERRYMICHELLEGAYE RESIDENT Medical Necessity Reason Pt with a Central, PICC or Fol: No Subjective Review of Systems Patient is 63 years old female with past medical history of abdominal aortic aneurysm/left renal artery aneurysm with a family history of aneurysm of the brain, CHF, carcinoma of the left breast, status post left axillary surgery, suspected CKD, anemia came with a complaint of chest pain. Reported having chest pain on the left side of the chest, sudden onset after lunch today, /10, sharp in nature likely needle, no radiation, pain reduced with the pain medication. Pain was associated with the shortness of breath and some palpitation like her heart was pounding lasting 1-2 minutes. Patient also endorsed lightheadedness and dizziness going on for last 3 weeks which especially woke her up last night from sleep. Patient reported that she woke up from sleep in the morning due to dizziness and headache, sharp in nature, mostly in the back of the neck. Patient reported that she had a left axillary surgery due to left breast carcinoma for which she had radiation last 1 in the December 04, she also had left axillary surgery likely for removal of the axillary lymph node. Patient denied any fever, cough, change in vision, dysarthria, constipation, diarrhea, acute joint pain or swelling. Initial EKG revealed sinus tachycardia, no acute ST or T-wave changes, D-dimer 0.35, troponin I negative, other lab workup revealed calcium 10.8, serum creatinine 0.99, , GFR 63, urinalysis revealed UTI with leukocyte esterase 3+, WBC 73, RBC 7, bacteria few. X-ray negative for acute cardiopulmonary disease. CT head negative for acute intracranial hemorrhage or any mass lesion. Past medical history: as per HPI Past surgical history: Tonsillectomy, left axillary surgery likely to remove lymph nodes as patient has a history of carcinoma of the left breast Family history: dad and brother had brain aneurysm Social history: Denies smoking, alcohol, drug use Review of systems Patient is seen and examined at the bedside. patient is alert and oriented to time, place and person. Patient at the time of examination does not report of chest pain,palpitations, dizziness, shortness of breath, sweating, nausea, abdominal pain. patient is afebrile and vitals stable. Patient has left-sided reproducible chest tenderness. Objective vital signs Vital Sign Date Time Temp Pulse Resp B/P (MAP) Pulse Ox O2 Delivery O2 Flow Rate FiO2 05/21/24 16:07 98.0 72 18 125/63 (83) 98 98.0 05/21/24 08:00 Room Air* 0 21 Total Intake and Output 05/20/24 05/20/24 05/21/24 14:59 22:59 06:59 Intake Total 250 ml Balance 250 ml medications Current Medications Medications Dose Ordered Sig/Luisana Route Start Time Stop Time Status Last Admin Dose Admin Sodium Chloride 10 ml Q8HR IV 05/20/24 22:00 05/21/24 15:06 10 ML Ondansetron HCl 4 mg Q4HP PRN IV 05/20/24 20:30 Acetaminophen 650 mg Q6HP PRN PO 05/20/24 20:30 Morphine Sulfate 2 mg Q4HPRN PRN IV 05/20/24 20:30 Nitroglycerin 0.4 mg Q5MINP PRN SL 05/20/24 20:30 Morphine Sulfate 2 mg Q30M PRN IV 05/20/24 20:30 Aspirin 81 mg DAILY PO 05/21/24 10:00 Ceftriaxone Sodium 50 ml @ 100 mls/hr DAILY@09 IV 05/21/24 09:00 05/21/24 09:49 100 MLS/HR Metoprolol Succinate 25 mg BID PO 05/21/24 10:00 05/21/24 09:46 25 MG Latanoprost 1 drop QPM EACHEYE 05/21/24 18:00 Brimonidine Tartrate 1 drop TID OP 05/21/24 14:00 05/21/24 15:06 1 DROP Dorzolamide/ Timolol 1 drop BID EACHEYE 05/21/24 10:00 05/21/24 10:00 1 DROP Lisinopril 10 mg DAILY PO 05/21/24 10:00 05/21/24 09:48 10 MG Hydralazine HCl 10 mg Q6HP PRN IV 05/21/24 00:45 Enoxaparin Sodium 40 mg DAILY SC 05/22/24 10:00 Famotidine 20 mg Q12HR PO 05/21/24 22:00 Examination Physical Examination Gen - no pallor, no icterus, no cyanosis, no clubbing, no LAD, no edema . Skin - Patients skin is warm and dry. HEENT - normocephalic, atraumatic, dry mucous membranes. Neck - full ROM, no LAD, no JVD Pulmonary - B/L vesicular breath sounds. no crackles , no wheezing, no stridor. cardiovascular - normal S1,S2 heard. no murmurs heard. peripheral pulses normal radial 2+, pedal 2+. capillary refill normal <2 secs. GI - soft abdomen without tenderness to palpation . no hepatospleenomegaly. Bowel sounds+ Neurological - Patient is A/O X 3 . Bilateral upper extremity strength 5/5, bilateral lower extremity strength 5/5, no facial droop, normal speech, no tremor, no sensory deficiets. laboratory and microbiology Laboratory Tests 05/21/24 05:41 Test 05/21/24 05:41 Range/Units Serum Glucose 123 H 74-106 mg/dL Microbiology Date/Time Source Procedure Growth Status 05/20/24 15:23 Voided Urine Urine Culture - Preliminary Resulted Problem List/Assessment/Plan Problem List/Assessment/Plan Assessment and Plan #Acute chest pain ACS ruled out likely musculoskeletal s/p radiation d/t carcinoma of the breast -troponin I negative-3> 5> 7 -D-dimer 0.35, nonsignificant -EKG sinus tachycardia, no ST elevation or T-wave changes -CXR-No radiographic evidence of acute cardiopulmonary disease. -Echo shows normal LVEF at 55%, grade I diastolic dysfunction -continue pain medication as prescribed # UTI -urinalysis leukocyte esterase 3+, WBC 73, RBC 7, bacteria few -pending uterine CS -continue ceftriaxone 1 g IV daily -maintain adequate hydration, avoid dehydration #Hypertension -continue lisinopril 10 mg p.o. daily -continue metoprolol XL 25 mg p.o. daily --continue hydralazine 10 mg IV q.6h p.r.n. -monitor BP # dizziness, lightheadedness --EKG sinus tachycardia -CT head negative for acute intracranial pathology -orthostatic vitals pending # H/o Glaucoma - continued on home medications latanoprost, brimonidine, dorzolamide/timolol # COPD, no acute exacerbation -nebulization p.r.n. with albuterol and ipratropium bromide #Left breast carcinoma -status post radiation therapy, last one was in November, -history of left axillary surgery likely to remove axillary lymph node due to carcinoma of the breast -surgeon for the patient-Dr. Reyes -follow up outpatient # CKD stage II -GFR 63 -avoid dehydration and nephrotoxic drugs Goals of care discusses with the patient for over 35mins. Full code Plan discussed with Plan discussed with: Patient My Orders My Orders Orders - POOJA MAYBERRY Procedure Category Date Status Time Regular Diet DIET 05/21/24 Transmitted Lunch Basic Metabolic Panel LAB 05/21/24 Logged 17:08 Date of Service: May 21, 2024 Billing Provider: HALIMA BOJORQUEZ MD Common Visit Codes: 91360-[id number] INP/OBS CARE(HIGH) POOJA MAYBERRY RESIDENT May 21, 2024 17:10 HALIMA BOJORQUEZ MD May 26, 2024 00:02
[2024-05-21] MEDS: LATANOPROST 0.005 % OPTH(EYE) SOL 2.5ML EACHEYE SCH (17:51)
[2024-05-21 18:32] LABS: Potassium 4.5 mmol/L (3.5-5.1); Sodium 141 mmol/L (136-145)
[2024-05-21 18:33] LABS: Anion Gap 7 (5-15); Calcium 9.8 mg/dL (8.7-10.4); Carbon Dioxide 22 mmol/L (20-31)
[2024-05-21 18:38] LABS: BUN/Creatinine Ratio 24.3 (10.0-20.0); Glucose 103 mg/dL (74-106)
[2024-05-21] MEDS: SODIUM CHLORIDE 0.9% 500 ML IV ONE (18:43)
[2024-05-21 19:01] LABS: Blood Urea Nitrogen 27 mg/dL (9-23); Chloride 112 mmol/L (98-107)
[2024-05-21] MEDS: FAMOTIDINE 20 MG TAB PO SCH (21:54)
[2024-05-22] VITALS (7 sets, daily range): BP systolic 118–130; BP diastolic 57–86; PULSE 57–80; RESP 14–20; TEMP 97.6–98.4; O2SAT 96–98
[2024-05-22 06:09] LABS: Basophils # (auto) 0 10 ^3/uL (0-0.2); Basophils % (auto) 0.6 % (0.0-2.0); Eosinophils # (auto) 0.2 10 ^3/uL (0-0.8); Eosinophils % (auto) 5.6 % (0.0-7.0); Hematocrit 36.4 % (36.0-46.0); Hemoglobin 12.6 g/dL (12.2-16.2); Lymphocytes # (auto) 1.4 10 ^3/uL (0.4-5.4); Mean Corpuscular Hemoglobin 32.6 pg (28.0-32.0); Mean Corpuscular Hgb Conc. 34.6 g/dL (32.0-36.0); Mean Corpuscular Volume 94.4 fL (80.0-100.0); Monocytes # (auto) 0.6 10 ^3/uL (0-1.3); Monocytes % (auto) 13.1 % (0.0-12.0); Neutrophils # (auto) 2.2 10 ^3/uL (1.6-8.6); Neutrophils % (auto) 48.7 % (37.0-80.0); Nucleated Red Blood Cells % 0.2 %; Platelet Count (auto) 117 10^3/uL (140-450); Red Blood Cells 3.86 10^6/uL (4.0-5.20); Red Cell Distribution Width 13.2 % (11.8-14.3); White Blood Cell 4.4 10^3/uL (4.4-10.8)
[2024-05-22 06:18] LABS: Anion Gap 9 (5-15); Calcium 9.8 mg/dL (8.7-10.4); Carbon Dioxide 22 mmol/L (20-31); Sodium 144 mmol/L (136-145)
[2024-05-22 06:23] LABS: Blood Urea Nitrogen 23 mg/dL (9-23); Glucose 101 mg/dL (74-106)
[2024-05-22 06:24] LABS: Chloride 113 mmol/L (98-107); Potassium 5.1 mmol/L (3.5-5.1)
[2024-05-22] MEDS: METOPROLOL SUCCINATE XL 50 MG TAB PO SCH (09:12)
[2024-05-22] MEDS: ENOXAPARIN SOD 40 MG/0.4 ML SYRINGE SC SCH (09:13)
[2024-05-22] MEDS: MORPHINE SULFATE INJ 2 MG/ml SYRG IV PRN (09:42)
[2024-05-22] MEDS: SODIUM CHLORIDE 0.9% 500 ML IV ONE (14:02)
[2024-05-22] MEDS ORDERED: METO-6 PO (15:07)
[2024-05-22] MEDS ORDERED: CIPR-173 PO (15:07)
--- NOTE | 2024-05-22 18:31 | DVHDSRES ---
Discharge Summary Date of Admission Resident Creating Document: POOJA MAYBERRY RESIDENT May 20, 2024 at 20:28 Date of Discharge: May 22, 2024 Admitting Diagnosis Chest pain Wounds: no wounds Labs/Diagnostic Data: Laboratory Results Test 05/22/24 05:44 05/21/24 05:41 05/20/24 22:50 05/20/24 19:15 White Blood Count 4.4 10^3/uL (4.4-10.8) Red Blood Count 3.86 10^6/uL (4.0-5.20) Hemoglobin 12.6 g/dL (12.2-16.2) Hematocrit 36.4 % (36.0-46.0) Mean Corpuscular Volume 94.4 fL (80.0-100.0) Mean Corpuscular Hemoglobin 32.6 pg (28.0-32.0) Mean Corpuscular Hemoglobin Concent 34.6 g/dL (32.0-36.0) Red Cell Distribution Width 13.2 % (11.8-14.3) Platelet Count 117 10^3/uL (140-450) Mean Platelet Volume 7.7 fL (6.9-10.8) Neutrophils (%) (Auto) 48.7 % (37.0-80.0) Lymphocytes (%) (Auto) 32.0 % (10.0-50.0) Monocytes (%) (Auto) 13.1 % (0.0-12.0) Eosinophils (%) (Auto) 5.6 % (0.0-7.0) Basophils (%) (Auto) 0.6 % (0.0-2.0) Neutrophils # (Auto) 2.2 10 ^3/uL (1.6-8.6) Lymphocytes # (Auto) 1.4 10 ^3/uL (0.4-5.4) Monocytes # (Auto) 0.6 10 ^3/uL (0-1.3) Eosinophils # (Auto) 0.2 10 ^3/uL (0-0.8) Basophils # (Auto) 0 10 ^3/uL (0-0.2) Nucleated Red Blood Cells 0.2 % Sodium Level 144 mmol/L (136-145) Potassium Level 5.1 mmol/L (3.5-5.1) Chloride Level 113 mmol/L (98-107) Carbon Dioxide Level 22 mmol/L (20-31) Anion Gap 9 (5-15) Blood Urea Nitrogen 23 mg/dL (9-23) Creatinine 0.96 mg/dL (0.550-1.02) Glomerular Filtration Rate Calc 66 mL/min (>90) BUN/Creatinine Ratio 24.0 (10.0-20.0) Serum Glucose 101 mg/dL (74-106) Calcium Level 9.8 mg/dL (8.7-10.4) Erythrocyte Sedimentation Rate 28 mm/hr (0-20) Total Bilirubin 0.5 mg/dL (0.2-1.0) Aspartate Amino Transferase (AST) 15 U/L (13-40) Alanine Aminotransferase (ALT) 28 U/L (7-40) Alkaline Phosphatase 69 U/L (46-116) C-Reactive Protein High Sensitivity 0.06 mg/dL (<1.0) Total Protein 6.7 g/dL (5.7-8.2) Albumin 4.1 g/dL (3.2-4.8) Plasma/Serum Blood Alcohol < 3.0 mg/dL (<10) Ionized Calcium 5.0 mg/dL (4.5-5.6) Thyroid Stimulating Hormone (TSH) 3.98 uIU/mL (0.55-4.78) Parathyroid Hormone (Intact) 66.2 pg/mL (18.4-80.1) Troponin I High Sensitivity 7 ng/L (</=34) Test 05/20/24 15:57 05/20/24 15:37 05/20/24 15:23 05/20/24 15:19 D-Dimer, Quantitative 0.35 mg/L FEU (0.0-0.49) Magnesium Level 2.2 mg/dL (1.6-2.6) B-Type Natriuretic Peptide 51.26 pg/mL (0-100) Lactic Acid Level 1.0 mmol/L (0.4-2.0) Urine Color Yellow (Yellow) Urine Clarity Turbid (Clear) Urine pH 5.5 (5.0-9.0) Urine Specific [place] 1.030 (1.001-1.035) Urine Protein 1+ (Negative) Urine Ketones Negative (Negative) Urine Blood Trace /uL (Negative) Urine Nitrite Negative (Negative) Urine Bilirubin Negative (Negative) Urine Urobilinogen Normal mg/dL (Negative) Urine Leukocyte Esterase 3+ /uL (Negative) Urine RBC 7 /hpf (0 - 4) Urine WBC 73 /hpf (0 - 5) Urine Squamous Epithelial Cells Mod /hpf (<5) Urine Bacteria Few /hpf (None Seen) Urine Mucus Few (None Seen) Urine Glucose Normal mg/dL (Normal) POC Glucose 113 mg/dl (70-106) Other Laboratory Tests 05/22/24 05:44 Brief Hx & Hospital Course: Patient is 63 years old female with past medical history of abdominal aortic aneurysm/left renal artery aneurysm with a family history of aneurysm of the brain, CHF, carcinoma of the left breast, status post left axillary surgery, suspected CKD, anemia came with a complaint of chest pain. Reported having chest pain on the left side of the chest, sudden onset after lunch today, 7/10, sharp in nature likely needle, no radiation, pain reduced with the pain medication. Pain was associated with the shortness of breath and some palpitation like her heart was pounding lasting 1-2 minutes. Patient also endorsed lightheadedness and dizziness going on for last 3 weeks which especially woke her up last night from sleep. Patient reported that she woke up from sleep in the morning due to dizziness and headache, sharp in nature, mostly in the back of the neck. Patient reported that she had a left axillary surgery due to left breast carcinoma for which she had radiation last in the November 2023, she also had left axillary surgery likely for removal of the axillary lymph node. Patient denied any fever, cough, change in vision, dysarthria, constipation, diarrhea, acute joint pain or swelling. Hospital course Initial EKG revealed sinus tachycardia, no acute ST or T-wave changes, D-dimer 0.35, troponin I negative, other lab workup revealed calcium 10.8, serum creatinine 0.99, , GFR 63, urinalysis revealed UTI with leukocyte esterase 3+, WBC 73, RBC 7, bacteria few. X-ray negative for acute cardiopulmonary disease. CT head negative for acute intracranial hemorrhage or any mass lesion. Patient was on tele-monitor which did not record any abnormal events. Patient's vitals remained stable throughout the stay of the hospital. Patient had reproducible tenderness on the left side of chest. patient did not report of palpitations. patient was given IV antibiotics for suspected UTI seen on urinalysis. patient was stable at the time of discharge. Physical examination on the day of discharge: Gen - no pallor, no icterus, no cyanosis, no clubbing, no LAD, no edema . Skin - Patients skin is warm and dry. HEENT - normocephalic, atraumatic, dry mucous membranes. Neck - full ROM, no LAD, no JVD Pulmonary - B/L vesicular breath sounds. no crackles , no wheezing, no stridor. cardiovascular - normal S1,S2 heard. no murmurs heard. peripheral pulses normal radial 2+, pedal 2+. capillary refill normal <2 secs. GI - soft abdomen without tenderness to palpation . no hepatospleenomegaly. Bowel sounds+ Neurological - Patient is A/O X 3 . Bilateral upper extremity strength 5/5, bilateral lower extremity strength 5/5, no facial droop, normal speech, no tremor, no sensory deficiets. D/C Patient is discharged in stable condition to home on oral ciprofloxacin and is advised to follow up in the D/C clinic in one week. Case discussed with Dr. Hodges Consults/Reason for consult no consultation Operations or Procedures Echocardiogram shows Normal left ventricular size and dimension. Normal left ventricular systolic function estimated ejection fraction 55%. There is a grade one diastolic dysfunction. Normal right ventricular size and dimension. Normal right ventricular systolic function. Normal biatrial size and dimension. Normal biatrial size and dimension. Normal aortic valve structure and function. Normal Mitral valve structure and function. Normal tricuspid valve structure function. The pulmonary valve is grossly normal. No pericardial effusion. Condition at Discharge: Stable Final Diagnosis/Problems List #Acute chest pain ACS ruled out likely musculoskeletal s/p radiation d/t carcinoma of the breast # UTI #Hypertension # dizziness, lightheadedness # H/o Glaucoma # COPD, no acute exacerbation # H/o Left breast carcinoma # CKD stage II Discharge Disposition: Home Discharge Instruct/Medications Diet: Cardiac 2g Na,low cholest Activity: No Restrictions, As Tolerated Follow Up/Referral: Follow up in the D/c clinic in one week on sunday05/27/2024 Follow up with the PCP in 1-2 weeks Medications: As per EMR Discharge Statement: "Patient was advised to return to the ER or call 911 if any headaches, dizziness, shortness of breath, chest pain, abdominal pain, bleeding, fevers, or worsening of medical condition. Patient was counseled about treatment plan, medications, possible side effects, patientverbalized understanding. All questions were answered to the best of my ability. This discharge took greater then 30 minutes in planning, reviewing documentation, counseling the patient, and discussing with other team members." ASSESSMENT ASSESSMENT Assessment #Acute chest pain ACS ruled out likely musculoskeletal s/p radiation d/t carcinoma of the breast # UTI #Hypertension # dizziness, lightheadedness # H/o Glaucoma # COPD, no acute exacerbation # H/o Left breast carcinoma # CKD stage II Addendum Addendum Addendum I was physically present for the cabral portions of the service provided to patient by THE RESIDENT. I have reviewed the documentation, discussed the case with resident and agree with the resident's documentation except as noted. Also the patient's clinical case was discussed with the patient's nurse. This medical document was created using an electronic medical record system with computerized dictation system. Although this document has been carefully reviewed, there might still be some phonetic and typographical errors. These areas are purely typographical due to imperfections of the software programs, and do not reflect any compromise in the patient's medical care. Late signature. Date of Service: May 22, 2024 Billing Provider: LUIZ HODGES MD Common Visit Codes: 98360-RNN/OBS DISCH DAY >30min POOJA MAYBERRY RESIDENT May 22, 2024 18:31 LUIZ HODGES MD May 24, 2024 05:31
== END 2024-05-22 17:44 | disposition home or self-care (01) | DRG 305 ==
LOC: ER 14:50 → TELE 20:28 → TELE-E-ADS 23:44 → TELE 23:59 → TELE-E-ADS 05-21 01:45 → EAST 05-22 09:41
PROVIDERS: ADMIT Student in an Organized Health Care Education/Training Program; ATTEND Emergency Medicine
DX: I16.0 Hypertensive urgency (principal); N30.00 Acute cystitis without hematuria; R07.89 Other chest pain; I13.0 Hypertensive heart and chronic kidney disease with heart failure and stage 1 through stage 4 chronic kidney disease, or unspecified chronic kidney disease; I50.9 Heart failure, unspecified; J44.9 Chronic obstructive pulmonary disease, unspecified; N18.2 Chronic kidney disease, stage 2 (mild); Z85.3 Personal history of malignant neoplasm of breast; Z79.1 Long term (current) use of non-steroidal anti-inflammatories (NSAID); Z79.899 Other long term (current) drug therapy
CPT/HCPCS: 36415; 70450; 71045; 80048; 80053; 80320; 81001; 82306; 82330; 82962; 83605; 83735; 83880; 83970; 84443; 84484; 85025; 85379; 85652; 86141; 87040; 87086; 93005; 93306; G0378; J2405

== ENCOUNTER 2024-06-29 12:30 | Emergency (ER) | payer MEDICAID, OTHER ==
[~2024-06-29] VITALS: Ht 157.5 cm; Wt 86.3 kg
[~2024-06-29 12:30] MED LIST changes: +CIPR-173 PO; +METO-6 PO; -METO25TA36 PO
[2024-06-29 13:53] VITALS: BP 126/74; PULSE 101; RESP 16; TEMP 98.3; O2SAT 98
--- NOTE | 2024-06-29 15:29 | DVH ---
CLINICAL INDICATION: RIGHT ANKLE PAIN TECHNIQUE: 3 radiographic views of the right ankle were obtained. Comparison: None FINDINGS/IMPRESSION: There is no evidence of acute fracture or dislocation. The visualized joint space is well maintained. The alignment is anatomical. There is no radiopaque foreign body. HS:Y
--- NOTE | 2024-06-29 15:41 | ED.PDOC ---
Musculoskeletal HPI Comments 63 year old female presents to the ED with a chief complaint of RT ankle pain onset today. Patient woke up today experiencing RT ankle pain as well as swelling, rates pain 9/. PMHx breast cancer, anemia, arthritis, CHF, CKF, HTN. No other symptoms or modifiyng factors present at this time. Chief Complaint: Lower Extremity Time Seen by MD: 15:23 Primary Care Provider: SUSANNAH Cooper Notes: Medications, Allergies Allergies: Coded Allergies: NO KNOWN ALLERGIES (Unverified , 03/12/12) Home Meds Active Scripts Ciprofloxacin Hcl (Cipro) 500 Mg Tab, 1 TAB PO BID for 5 Days, #10 TAB Prov:GRACE BRASWELL RESIDENT 05/22/24 Metoprolol Succinate (Toprol Xl) 50 Mg Tab, 25 MG PO DAILY for 30 Days, #15 TAB 1 Refill Prov:GRACE BRASWELL RESIDENT 05/22/24 Acetaminophen (Tylenol 8 Hour Arthritis) 650 Mg Tab, 650 MG PO TID, #30 TAB Prov:VANGIE GOSS 12/07/22 Reported Medications Lisinopril (Lisinopril) 10 Mg Tab, 10 MG PO DAILY, TAB 04/16/23 Fluticasone Propionate (FLOVENT HFA 110Mcg INH) 110 Mcg Ih, 110 MCG INH Q12HR for 30 Days, MCG 01/26/18 Dorzolamide-Timolol (Dorzolamide Hcl/Timolol M) 1 Ml Елена, 1 DROP EACHEYE BID, #10 ML 6 Refills 01/26/18 Brimonidine Tartrate (Brimonidine Tartrate) 0.15 % Елена, 1 DROP OP TID, DROP 01/26/18 Latanoprost (LATANOPROST) 0.005 % Елена, 1 DROP EACHEYE QPM, #7.5 ML 3 Refills 01/26/18 Information Source: Patient Mode of Arrival: Ambulatory Location: Right Extremity Location: Ankle Timing: Hours Prehospital treatment: Pain Meds Severity: Moderate Able to Move Extremity: Yes Bear Weight: Limited Pain: Moderate Circumstances: Unknown Symptoms: Swelling, Pain DVT Risk Factors: CHF History of: Arthritis Associated signs and symptoms: Ankle pain Past Medical History PAST MEDICAL HISTORY: Anemia, Arthritis, Cancer (breast), CHF, CKF, HTN, Liver Surgical History: Tonsillectomy ELECTRONIC GAMING DEVICE SUPERVISOR History: No Pertinent ELECTRONIC GAMING DEVICE SUPERVISOR History Family History Family History: No family hx of DM, No family hx of Heart holly, No family hx of HTN Social History Smoker: Non-Smoker Alcohol: Heavy Drugs: Denies Drug Use Lives In: Home Constitutional: denies: chills, diaphoresis, fatigue, fever, malaise, sweats, weakness, others EENTM: denies: blurred vision, double vision, ear bleeding, ear discharge, ear drainage, ear pain, ear ringing, eye pain, eye redness, hearing loss, mouth pain, mouth swelling, nasal discharge, nose bleeding, nose congestion, nose pain, photophobia, tearing, throat pain, throat swelling, voice changes, others Respiratory: denies: cough, hemoptysis, orthopnea, SOB at rest, shortness of breath, SOB with excertion, stridor, wheezing, others Cardiovascular: denies: chest pain, dizzy spells, diaphoresis, Dyspnea on exertion, edema, irregular heart beat, left arm pain, lightheadedness, palpitations, PND, syncope, others Gastrointestinal: denies: abdomen distended, abdominal pain, blood streaked bowels, constipated, diarrhea, dysphagia, difficulty swallowing, hematemesis, melena, nausea, poor appetite, poor fluid intake, rectal bleeding, rectal pain, vomiting, others Genitourinary: denies: abnormal vagina bleeding, burning, dyspareunia, dysuria, flank pain, frequency, hematuria, incontinence, pain, , vagina discharge, urgency, others Neurological: denies: dizziness, fainting, headache, left sided numbness, left sided weakness, numbness, paresthesia, pre-existing deficit, right sided numbness, right sided weakness, seizure, speech problems, tingling, tremors, weakness, others Musculoskeletal: reports: others (RT ankle pain, RT ankle swelling); denies: back pain, gout, joint pain, joint swelling, muscle pain, muscle stiffness, neck pain Integumetry: denies: bruises, change in color, change in hair/nails, dryness, laceration, lesions, lumps, rash, wounds, others Allergic/Immunocompromised: denies: Difficulty Healing, Frequent Infections, Hives, Itching, others Hematologic/Lymphatic: denies: anemia, blood clots, easy bleeding, easy bruising, swollen glands, others Endocrine: denies: excessive hunger, excessive sweating, excessive thirst, excessive urination, flushing, intolerance to cold, intolerance to heat, unexplained weight gain, unexplained weight loss, others Psychiatric: denies: anxiety, bipolar disorder, depression, hopeless, panic disorder, schizophrenia, sleepless, suicidal, others All Other Systems: Reviewed and Negative Physical Exam General Appearance: Moderate Distress HEENT: Normal ENT Inspection, Pharynx Normal, TMs Normal Neck: Full Range of Motion, Non-Tender, Normal, Normal Inspection Respiratory: Chest Non-Tender, Lungs Clear, No Accessory Muscle Use, No Respiratory Distress, Normal Breath Sounds Cardiovascular: No Edema, No JVD, No Murmur, No Gallop, Normal Peripheral Pulses, Regular Rate/Rhythm Breast Exam: Deferred Gastrointestinal: No Organomegaly, Non Tender, No Pulsatile Mass, Normal Bowel Sounds, Soft Genitalia: Deferred Pelvic: Deferred Rectal: Deferred Extremities: No calf tenderness, Normal capillary refill, Normal inspection, Normal range of motion, Non-tender, No pedal edema Musculoskeletal : Apperance: Normal Neurologic: Alert, No Motor Deficits, No Sensory Deficits Cerebellar Function: NOT DONE Reflexes: NOT DONE Skin: Normal Color Peripheral Pulses: 3+ Radial (R), 3+ Radial (L) Lymphatic: No Adenopathy Was a procedure done? Was a procedure done?: No Differential Diagnosis EXT Differential Diagnosis: Fracture, Sprain, Strain X-Ray, Labs, Meds, VS Vital Signs Date Time Temp Pulse Resp B/P (MAP) Pulse Ox O2 Delivery O2 Flow Rate FiO2 06/29/24 13:53 101 16 98 Room Air 06/29/24 13:53 98.3 101 16 126/74 (91) 98 98.3 06/29/24 13:35 98.3 101 16 126/74 (91) 98 Patient alert. Complaining of right ankle pain. Vitals stable. Answering all questions. Saturation pristine on room air. No leg swelling. No shortness a breath. No chest pain. Heart rate clinically within normal limits. Saturation pristine on room air. Respiratory rate within normal limits. Was given prescription of [place]. Cristi wrap. Reviewed her previous visit. Explained to the patient. Was told to follow up with her primary care physician. Was told to come back if there is any problem. Time of 1ST Reevaluation: 15:53 Reevaluation 1ST: Improved Patient Education/Counseling: Diagnosis, Treatment, Prognosis Family Education/Counseling: No Family Present Additional Information I reviewed the following notes from patient's past medical encounters: The following tests were ordered, and results were reviewed by me: EMIL ABREU ANKLE 3 VIEW I reviewed and agreed with the following test results read by other providers: EMIL ABREU ANKLE 3 VIEW I discussed treatment and results with medical personnel and patient Departure 1 Departure Time of Disposition: 15:57 Impression: Primary Impression: Ankle sprain Qualified Codes: S93.401A - Sprain of unspecified ligament of right ankle, initial encounter Disposition: HOME / SELF CARE / HOMELESS Condition: Good e-Prescriptions Hydrocodone-Acetaminophen (Hydrocodone Bitartrate/AC 5-325 mg) 1 Tab Tab 1 TAB PO DAILY for 5 Days, #5 TAB Prov: MITRA LENZ MD 06/29/24 Discharged With: Self Critical Care Note Critical Care Time?: No Stability Stability form required: No Heart Score Heart Score: Heart Score Response (Comments) Value History N/A 0 EKG N/A 0 Age N/A 0 Risk Factors N/A 0 Troponin N/A 0 Total 0 I personally scribed for MITRA LENZ MD ([email or web address]) on 06/29/24 at 15:41. Electronically submitted by Niurka Long ([email or web address]). I personally scribed for MITRA LENZ MD ([email or web address]) on 06/29/24 at 15:44. Electronically submitted by Niurka Long ([email or web address]). MITRA LENZ MD Jun 29, 2024 15:41
[2024-06-29] MEDS ORDERED: HYDR-4902 PO (15:58)
== END 2024-06-29 16:02 | disposition home or self-care (01) ==
LOC: ER 12:38
DX: S93.491A Sprain of other ligament of right ankle, initial encounter (principal); I11.0 Hypertensive heart disease with heart failure; I50.9 Heart failure, unspecified; M19.90 Unspecified osteoarthritis, unspecified site; Z79.899 Other long term (current) drug therapy; Z90.89 Acquired absence of other organs; Z98.890 Other specified postprocedural states; X58.XXXA Exposure to other specified factors, initial encounter; Y93.89 Activity, other specified; Y92.89 Other specified places as the place of occurrence of the external cause; Y99.8 Other external cause status
CPT/HCPCS: 73610

== ENCOUNTER 2024-09-13 13:40 | Emergency (ER) | payer MEDICAID, OTHER ==
[~2024-09-13] VITALS: Ht 157.5 cm; Wt 84.8 kg
[~2024-09-13 13:40] MED LIST changes: +HYDR-4902 PO
[2024-09-13 14:14] VITALS: BP 129/75; PULSE 87; RESP 20; TEMP 98.8; O2SAT 95
[2024-09-13] MEDS ORDERED: HYDR-4902 PO (14:23)
--- NOTE | 2024-09-13 14:24 | ED.PDOC ---
History of Present Illness HPI Comments A 64 YEAR OLD FEMALE PRESENTS TO THE ED WITH COMPLAINT OF REQUEST FOR PRESCRIPTION. PATIENT STATES SHE SPRAINED HER RIGHT ANKLE 2 MONTHS AGO AND HAS BEEN EXPERIENCING RIGHT ANKLE PAIN OFF AND ON SINCE THEN. PATIENT REPORTS SHE HAS AN APPOINTMENT WITH HER PRIMARY CARE PHYSICIAN 2 DAYS FROM NOW, BUT WOULD LIKE A PRESCRIPTION FOR NORCO TO MANAGE HER PAIN UNTIL THEN. PATIENT DENIES FEVER, CHILLS, SHORTNESS OF BREATH, CHEST PAIN, ABDOMINAL PAIN, NAUSEA, VOMITING, HEADACHE, OR OTHER COMPLAINTS. NO OTHER SYMPTOMS OR MODIFYING FACTORS AT THIS TIME. PATIENT IS ALERT, ORIENTED X 4, AND HAS STEADY GAIT. Chief Complaint: Lower Extremity Time Seen by MD: 13:44 Primary Care Provider: SUSANNAH Reviewed Notes: Nurses Notes, Medications, Allergies Allergies: Coded Allergies: NO KNOWN ALLERGIES (Unverified , 03/12/12) Home Meds Active Scripts Hydrocodone-Acetaminophen (Hydrocodone Bitartrate/AC 5-325 mg) 1 Tab Tab, 1 TAB PO BID, #10 TAB Prov:VANGIE GOSS 09/13/24 Hydrocodone-Acetaminophen (Hydrocodone Bitartrate/AC 5-325 mg) 1 Tab Tab, 1 TAB PO DAILY for 5 Days, #5 TAB Prov:MITRA LENZ MD 06/29/24 Ciprofloxacin Hcl (Cipro) 500 Mg Tab, 1 TAB PO BID for 5 Days, #10 TAB Prov:GRACE BRASWELL RESIDENT 05/22/24 Metoprolol Succinate (Toprol Xl) 50 Mg Tab, 25 MG PO DAILY for 30 Days, #15 TAB 1 Refill Prov:GRACE BRASWELL RESIDENT 05/22/24 Acetaminophen (Tylenol 8 Hour Arthritis) 650 Mg Tab, 650 MG PO TID, #30 TAB Prov:VANGIE GOSS 12/07/22 Reported Medications Lisinopril (Lisinopril) 10 Mg Tab, 10 MG PO DAILY, TAB 04/16/23 Fluticasone Propionate (FLOVENT HFA 110Mcg INH) 110 Mcg Ih, 110 MCG INH Q12HR for 30 Days, MCG 01/26/18 Dorzolamide-Timolol (Dorzolamide Hcl/Timolol M) 1 Ml Елена, 1 DROP EACHEYE BID, #10 ML 6 Refills 01/26/18 Brimonidine Tartrate (Brimonidine Tartrate) 0.15 % Елена, 1 DROP OP TID, DROP 01/26/18 Latanoprost (LATANOPROST) 0.005 % Елена, 1 DROP EACHEYE QPM, #7.5 ML 3 Refills 01/26/18 Information Source: Patient Mode of Arrival: Ambulatory Severity: Moderate Timing: Days Duration: Since onset, Days Prehospital treatment: None Medication Refill: Ran out of Medication, For: Pain, For: Other (REQUEST FOR PRESCRIPTION) Past Medical History PAST MEDICAL HISTORY: Anemia, Arthritis, Cancer, CHF, CKF, HTN, Liver Surgical History: Tonsillectomy ASSEMBLER CARDS AND ANNOUNCEMENTS History: No Pertinent ASSEMBLER CARDS AND ANNOUNCEMENTS History Family History Family History: No family hx of DM, No family hx of Heart holly, No family hx of HTN Social History Smoker: Non-Smoker Alcohol: Heavy Drugs: Denies Drug Use Lives In: Home Constitutional: denies: chills, diaphoresis, fatigue, fever, malaise, sweats, weakness, others EENTM: denies: blurred vision, double vision, ear bleeding, ear discharge, ear drainage, ear pain, ear ringing, eye pain, eye redness, hearing loss, mouth pain, mouth swelling, nasal discharge, nose bleeding, nose congestion, nose pain, photophobia, tearing, throat pain, throat swelling, voice changes, others Respiratory: denies: cough, hemoptysis, orthopnea, SOB at rest, shortness of breath, SOB with excertion, stridor, wheezing, others Cardiovascular: denies: chest pain, dizzy spells, diaphoresis, Dyspnea on exertion, edema, irregular heart beat, left arm pain, lightheadedness, palpitations, PND, syncope, others Gastrointestinal: denies: abdomen distended, abdominal pain, blood streaked bowels, constipated, diarrhea, dysphagia, difficulty swallowing, hematemesis, melena, nausea, poor appetite, poor fluid intake, rectal bleeding, rectal pain, vomiting, others Genitourinary: denies: abnormal vagina bleeding, burning, dyspareunia, dysuria, flank pain, frequency, hematuria, incontinence, pain, , vagina discharge, urgency, others Neurological: denies: dizziness, fainting, headache, left sided numbness, left sided weakness, numbness, paresthesia, pre-existing deficit, right sided numbness, right sided weakness, seizure, speech problems, tingling, tremors, weakness, others Musculoskeletal: reports: joint pain, others (RIGHT ANKLE PAIN); denies: back pain, gout, joint swelling, muscle pain, muscle stiffness, neck pain Integumetry: denies: bruises, change in color, change in hair/nails, dryness, laceration, lesions, lumps, rash, wounds, others Allergic/Immunocompromised: denies: Difficulty Healing, Frequent Infections, Hives, Itching, others Hematologic/Lymphatic: denies: anemia, blood clots, easy bleeding, easy bruising, swollen glands, others Endocrine: denies: excessive hunger, excessive sweating, excessive thirst, excessive urination, flushing, intolerance to cold, intolerance to heat, unexplained weight gain, unexplained weight loss, others Psychiatric: denies: anxiety, bipolar disorder, depression, hopeless, panic disorder, schizophrenia, sleepless, suicidal, others All Other Systems: Reviewed and Negative Physical Exam General Appearance: No Apparent Distress, Normal HEENT: Normal ENT Inspection, PERRL/EOMI, Pharynx Normal, TMs Normal Neck: Full Range of Motion, Non-Tender, Normal, Normal Inspection Respiratory: Chest Non-Tender, Lungs Clear, No Accessory Muscle Use, No Respiratory Distress, Normal Breath Sounds Cardiovascular: No Edema, No JVD, No Murmur, No Gallop, Normal Peripheral Pulses, Regular Rate/Rhythm Breast Exam: Deferred Gastrointestinal: No Organomegaly, Non Tender, No Pulsatile Mass, Normal Bowel Sounds, Soft Genitalia: Deferred Pelvic: Deferred Rectal: Deferred Extremities: No calf tenderness, Normal capillary refill, Normal inspection, Normal range of motion, No pedal edema, Tender (ON RIGHT ANKLE, NO BONY TENDERNESS, SWELLING AND DEFORMITY. ) Musculoskeletal : Apperance: Normal Neurologic: Alert, leather carver II-XII nml as Tested, No Motor Deficits, Normal Affect, Normal Mood, No Sensory Deficits Cerebellar Function: Normal Reflexes: Normal Skin: Dry, Normal Color, Warm Peripheral Pulses: 2+ carotid (R), 2+ carotid (L), 2+ dorsalis pedis (R), 2+ dorsalis pedis (L) Lymphatic: No Adenopathy Was a procedure done? Was a procedure done?: No Differential Dx Considerations may include: CHRONIC RIGHT ANKLE PAIN, MEDICATION REFILL, REQUEST FOR PRESCRIPTION X-Ray, Labs, Meds, VS Vital Signs Date Time Temp Pulse Resp B/P (MAP) Pulse Ox O2 Delivery O2 Flow Rate FiO2 09/13/24 14:14 87 20 95 Room Air 09/13/24 14:14 98.8 87 20 129/75 (93) 95 98.8 09/13/24 13:55 98.8 87 20 129/75 (93) 95 98.8 X-Ray, Labs, Meds, VS Comment EXTERNAL MEDICAL RECORDS REVIEWED: [NONE] INDEPENDENT HISTORIANS: [NONE] SOCIAL DETERMINANTS OF HEALTH: [NONE] LABS ORDERED: NONE REVIEWED AND INTERPRETED RESULTS: NONE IMAGING ORDERED: NONE TREATMENTS ORDERED: NORCO 5/325MG PO PROCEDURES PERFORMED: NONE CRITICAL CARE TIME: NONE I HAVE DISCUSSED THE PATIENT WITH THE ATTENDING PHYSICIAN DR. FORD AND HE AGREES WITH THE PATIENT'S PLAN OF CARE AND DISPOSITION. BASED ON HISTORY OF PRESENT ILLNESS, AND PHYSICAL EXAM, PATIENT WILL BE DISCHARGED HOME. DISCUSSED PLAN FOR DISCHARGE HOME WITH RX [NORCO 5/325MG PO]. MEDICATION WARNINGS GIVEN. SHARED DECISION MAKING: PATIENT INSTRUCTED TO FOLLOW UP WITH PRIMARY CARE PROVIDER IN 1-2 DAYS FOR RE-EVALUATION OF SYMPTOMS. PATIENT VERBALIZES UNDERSTANDING TO RETURN TO ED FOR NEW OR WORSENING SYMPTOMS OR IF FOLLOW UP WITH PCP CANNOT BE OBTAINED. PATIENT FEELS COMFORTABLE GOING HOME AT THIS TIME. ALL QUESTIONS ADDRESSED AT TIME OF DISCHARGE. Time of 1ST Reevaluation: 14:31 Reevaluation 1ST: Improved Patient Education/Counseling: Diagnosis, Treatment, Need For Follow Up Family Education/Counseling: Diagnosis, Treatment, Need For Follow Up Medical Screening: No EMC Exist At This Time Departure 1 Departure Time of Disposition: 14:31 Impression: Primary Impression: Encounter for medication refill Additional Impression: Pain management Disposition: 01 HOME / SELF CARE / HOMELESS Condition: Stable Additional Instructions: FOLLOW-UP WITH PCP IN 1 TO 2 DAYS. TAKE MEDICATIONS PRESCRIBED. RETURN TO ED FOR ANY NEW OR WORSENING SYMPTOMS. e-Prescriptions Hydrocodone-Acetaminophen (Hydrocodone Bitartrate/AC 5-325 mg) 1 Tab Tab 1 TAB PO BID, #10 TAB Prov: VANGIE GOSS 09/13/24 Discharged With: Self Critical Care Note Critical Care Time?: No Stability Stability form required: No I personally scribed for VANGIE GOSS ([email or web address]) on 09/13/24 at 14:24. Electronically submitted by Beni Siddiqi ([email or web address]). VANGIE GOSS Sep 13, 2024 14:24
[2024-09-13] MEDS: HYDROcodone-ACET 5/325MG TAB PO ONE (14:29)
== END 2024-09-13 14:33 | disposition home or self-care (01) ==
LOC: ER 13:40
DX: M25.571 Pain in right ankle and joints of right foot (principal); I13.0 Hypertensive heart and chronic kidney disease with heart failure and stage 1 through stage 4 chronic kidney disease, or unspecified chronic kidney disease; N18.9 Chronic kidney disease, unspecified; I50.9 Heart failure, unspecified; Z76.0 Encounter for issue of repeat prescription; Z79.51 Long term (current) use of inhaled steroids; Z79.899 Other long term (current) drug therapy; Z90.89 Acquired absence of other organs

== ENCOUNTER 2024-11-14 12:45 | Emergency (ER) | payer MEDICAID, OTHER ==
[~2024-11-14] VITALS: Ht 157.5 cm; Wt 83.5 kg
[2024-11-14 13:00] VITALS: BP 117/65; PULSE 82; RESP 20; TEMP 97.7; O2SAT 97
== END 2024-11-14 14:14 | disposition left against medical advice (07) ==
LOC: ER 12:45
DX: M25.571 Pain in right ankle and joints of right foot (principal); Z53.21 Procedure and treatment not carried out due to patient leaving prior to being seen by health care provider; X58.XXXA Exposure to other specified factors, initial encounter; Y93.89 Activity, other specified; Y92.89 Other specified places as the place of occurrence of the external cause; Y99.8 Other external cause status

== ENCOUNTER 2025-06-15 07:35 | Outpatient (CLI) | payer MEDICAID ==
[2025-06-15 07:53] LABS: Hematocrit 36.2 % (36.0-46.0); Hemoglobin 12.1 g/dL (12.2-16.2); Mean Corpuscular Hemoglobin 31.9 pg (28.0-32.0); Mean Corpuscular Volume 95.5 fL (80.0-100.0); Nucleated Red Blood Cells % 0.0 %
[2025-06-15 08:18] LABS: Alanine Aminotransferase 25 U/L (7-40); Albumin 4.1 g/dL (3.2-4.8); Alkaline Phosphatase 63 U/L (46-116); Anion Gap 8 (5-15); BUN/Creatinine Ratio 26.4 (10.0-20.0); Calcium 9.4 mg/dL (8.7-10.4); Carbon Dioxide 24 mmol/L (20-31); Cholesterol 187 mg/dL (< 200); Glucose 95 mg/dL (74-106); Potassium 4.7 mmol/L (3.5-5.1); Sodium 142 mmol/L (136-145); Total Protein 6.9 g/dL (5.7-8.2); Triglycerides 101 mg/dL (< 150)
[2025-06-15 08:19] LABS: Bilirubin, Total 0.4 mg/dL (0.2-1.0)
[2025-06-15 08:32] LABS: Blood Urea Nitrogen 29 mg/dL (9-23); Chloride 110 mmol/L (98-107); HDL Cholesterol 63 mg/dL (40-59)
== END 2025-06-15 17:00 | disposition home or self-care (01) ==
LOC: LAB 07:35
PROVIDERS: ATTEND Nurse Practitioner
DX: I10 Essential (primary) hypertension (principal); E78.5 Hyperlipidemia, unspecified; R73.9 Hyperglycemia, unspecified
CPT/HCPCS: 36415; 80053; 80061; 83036; 84443; 85025